=== PATIENT | female | born 1945 | race Caucasian/White ===

== ENCOUNTER → 2021-03-04 09:18 | Outpatient (CLI) | payer BC, SELFPAY ==
[2021-03-04 21:38] LABS: Add Manual Diff / Slide Review NO; Basophils Absolute Auto 0 /uL (0-100); Basophils Percent Auto 1.2 % (0-2); Eosinophils Absolute Auto 200 /uL (0-450); Eosinophils Percent Auto 5.3 % (2-4); Hematocrit 36.1 % (36-46); Hemoglobin 12.2 g/dL (12.0-16.0); Lymphocytes Absolute Auto 1200 /uL (1100-4500); Lymphocytes Percent Auto 37.5 % (25-40); Mean Corpuscular HGB Conc 33.7 % (30-36); Mean Corpuscular Hemoglobin 31.1 PG (26-34); Mean Corpuscular Volume 92.3 fL (80-100); Monocytes Absolute Auto 400 /uL (0-900); Monocytes Percent Auto 11.5 % (3-14); Neutrophils Absolute Auto 1400 /uL (1500-7000); Neutrophils Percent Auto 44.5 % (50-75); Platelet Count 187 X10^3/uL (150-400); Red Blood Cell Count 3.92 X10^6/uL (4.0-5.2); Red Cell Distribution Width 15.2 % (11.6-14.8); White Blood Cell Count 3.2 X10^3/uL (4.5-11.0)
[2021-03-04 22:06] LABS: Alanine Aminotransferase 57 IU/L (<35); Albumin 3.5 g/dL (3.5-5.0); Albumin Globulin Ratio 1.5 (1.0-2.8); Alkaline Phosphatase 45 U/L (38-126); Aspartate Aminotransferase 71 IU/L (14-36); BUN Creatinine Ratio 19.2 (6-22); Bilirubin Total 0.2 mg/dL (0.2-1.3); Blood Urea Nitrogen 15 mg/dL (7-17); Carbon Dioxide 24 mmol/L (22-32); Chloride 114 mmol/L (98-107); Estimated Glomerular Filt Rate > 60.0 mL/min (>60); Globulin 2.4 g/dL (1.7-4.1); Glucose 90 mg/dL (80-110); HEMOLYSIS < 15 (0-50); Potassium 4.5 mmol/L (3.4-5.1); Sodium 141 mmol/L (137-145); Total Protein 5.9 g/dL (6.3-8.2)
[2021-03-06 05:45] LABS: CA 15-3 36.1 U/mL (0.0-25.0)
== END ==
DX: C50.411 Malignant neoplasm of upper-outer quadrant of right female breast (principal)
CPT/HCPCS: 80053; 85025; 86300

== ENCOUNTER → 2021-04-01 09:11 | Outpatient (CLI) | payer BC, SELFPAY ==
[2021-04-01 20:43] LABS: Add Manual Diff / Slide Review NO; Basophils Absolute Auto 100 /uL (0-100); Basophils Percent Auto 2.5 % (0-2); Eosinophils Absolute Auto 100 /uL (0-450); Eosinophils Percent Auto 4.3 % (2-4); Hematocrit 36.4 % (36-46); Hemoglobin 12.2 g/dL (12.0-16.0); Lymphocytes Absolute Auto 900 /uL (1100-4500); Lymphocytes Percent Auto 33.7 % (25-40); Mean Corpuscular HGB Conc 33.6 % (30-36); Mean Corpuscular Hemoglobin 31.7 PG (26-34); Mean Corpuscular Volume 94.6 fL (80-100); Monocytes Absolute Auto 300 /uL (0-900); Monocytes Percent Auto 11.4 % (3-14); Neutrophils Absolute Auto 1300 /uL (1500-7000); Neutrophils Percent Auto 48.1 % (50-75); Platelet Count 170 X10^3/uL (150-400); Red Blood Cell Count 3.85 X10^6/uL (4.0-5.2); Red Cell Distribution Width 14.3 % (11.6-14.8); White Blood Cell Count 2.7 X10^3/uL (4.5-11.0)
[2021-04-01 20:50] LABS: Alanine Aminotransferase 65 IU/L (<35); Albumin 3.6 g/dL (3.5-5.0); Albumin Globulin Ratio 1.4 (1.0-2.8); Alkaline Phosphatase 45 U/L (38-126); Aspartate Aminotransferase 80 IU/L (14-36); BUN Creatinine Ratio 17.8 (6-22); Bilirubin Total 0.4 mg/dL (0.2-1.3); Blood Urea Nitrogen 16 mg/dL (7-17); Calcium 9.7 mg/dL (8.4-10.2); Carbon Dioxide 29 mmol/L (22-32); Chloride 109 mmol/L (98-107); Estimated Glomerular Filt Rate > 60.0 mL/min (>60); Globulin 2.5 g/dL (1.7-4.1); Glucose 67 mg/dL (80-110); HEMOLYSIS < 15 (0-50); Potassium 4.2 mmol/L (3.4-5.1); Sodium 140 mmol/L (137-145); Total Protein 6.1 g/dL (6.3-8.2)
[2021-04-03 06:27] LABS: CA 15-3 36.5 U/mL (0.0-25.0)
== END ==
DX: C50.411 Malignant neoplasm of upper-outer quadrant of right female breast (principal)
CPT/HCPCS: 80053; 85025; 86300

== ENCOUNTER → 2021-06-10 09:34 | Outpatient (CLI) | payer BC, SELFPAY ==
[2021-06-10 19:17] LABS: Add Manual Diff / Slide Review NO; Basophils Absolute Auto 0 /uL (0-100); Basophils Percent Auto 1.2 % (0-2); Eosinophils Absolute Auto 200 /uL (0-450); Eosinophils Percent Auto 5.8 % (2-4); Hemoglobin 12.4 g/dL (12.0-16.0); Lymphocytes Absolute Auto 1200 /uL (1100-4500); Lymphocytes Percent Auto 34.9 % (25-40); Mean Corpuscular HGB Conc 32.6 % (30-36); Mean Corpuscular Hemoglobin 30.8 PG (26-34); Mean Corpuscular Volume 94.3 fL (80-100); Monocytes Absolute Auto 400 /uL (0-900); Monocytes Percent Auto 11.5 % (3-14); Neutrophils Absolute Auto 1700 /uL (1500-7000); Neutrophils Percent Auto 46.6 % (50-75); Platelet Count 165 X10^3/uL (150-400); Red Blood Cell Count 4.03 X10^6/uL (4.0-5.2); Red Cell Distribution Width 14.5 % (11.6-14.8); White Blood Cell Count 3.6 X10^3/uL (4.5-11.0)
[2021-06-10 19:20] LABS: Alanine Aminotransferase 70 IU/L (<35); Albumin 3.7 g/dL (3.5-5.0); Albumin Globulin Ratio 1.4 (1.0-2.8); Alkaline Phosphatase 56 U/L (38-126); Aspartate Aminotransferase 91 IU/L (14-36); BUN Creatinine Ratio 19.6 (6-22); Bilirubin Total 0.6 mg/dL (0.2-1.3); Blood Urea Nitrogen 18 mg/dL (7-17); Calcium 10.2 mg/dL (8.4-10.2); Carbon Dioxide 28 mmol/L (22-32); Chloride 108 mmol/L (98-107); Estimated Glomerular Filt Rate 59.4 mL/min (>60); Globulin 2.7 g/dL (1.7-4.1); Glucose 83 mg/dL (80-110); HEMOLYSIS < 15 (0-50); Potassium 4.3 mmol/L (3.4-5.1); Sodium 139 mmol/L (137-145); Total Protein 6.4 g/dL (6.3-8.2)
[2021-06-12 00:07] LABS: CA 15-3 32.2 U/mL (0.0-25.0)
== END ==
PROVIDERS: PCP Internal Medicine Hematology & Oncology; Visit Provider Internal Medicine Hematology & Oncology
DX: C50.411 Malignant neoplasm of upper-outer quadrant of right female breast (principal)
CPT/HCPCS: 80053; 85025; 86300

== ENCOUNTER → 2021-07-08 10:08 | Outpatient (CLI) | payer BC, SELFPAY ==
[2021-07-08 19:33] LABS: Add Manual Diff / Slide Review NO; Basophils Absolute Auto 0 /uL (0-100); Basophils Percent Auto 1.5 % (0-2); Eosinophils Absolute Auto 200 /uL (0-450); Eosinophils Percent Auto 5.6 % (2-4); Hematocrit 37.8 % (36-46); Hemoglobin 12.6 g/dL (12.0-16.0); Lymphocytes Absolute Auto 1000 /uL (1100-4500); Lymphocytes Percent Auto 34.7 % (25-40); Mean Corpuscular HGB Conc 33.3 % (30-36); Mean Corpuscular Hemoglobin 31.3 PG (26-34); Mean Corpuscular Volume 94.1 fL (80-100); Monocytes Absolute Auto 400 /uL (0-900); Monocytes Percent Auto 11.8 % (3-14); Neutrophils Absolute Auto 1400 /uL (1500-7000); Neutrophils Percent Auto 46.4 % (50-75); Platelet Count 169 X10^3/uL (150-400); Red Blood Cell Count 4.02 X10^6/uL (4.0-5.2); Red Cell Distribution Width 14.2 % (11.6-14.8)
[2021-07-08 19:40] LABS: Alanine Aminotransferase 79 IU/L (<35); Albumin 3.8 g/dL (3.5-5.0); Albumin Globulin Ratio 1.5 (1.0-2.8); Alkaline Phosphatase 44 U/L (38-126); Aspartate Aminotransferase 106 IU/L (14-36); BUN Creatinine Ratio 17.6 (6-22); Bilirubin Total 0.5 mg/dL (0.2-1.3); Blood Urea Nitrogen 16 mg/dL (7-17); Calcium 9.8 mg/dL (8.4-10.2); Carbon Dioxide 32 mmol/L (22-32); Chloride 108 mmol/L (98-107); Estimated Glomerular Filt Rate > 60.0 mL/min (>60); Globulin 2.6 g/dL (1.7-4.1); Glucose 75 mg/dL (80-110); HEMOLYSIS < 15 (0-50); Potassium 4.4 mmol/L (3.4-5.1); Sodium 141 mmol/L (137-145); Total Protein 6.4 g/dL (6.3-8.2)
[2021-07-10 08:53] LABS: CA 15-3 27.9 U/mL (0.0-25.0)
== END ==
PROVIDERS: PCP Physician Assistant; Visit Provider Internal Medicine Hematology & Oncology
DX: C50.411 Malignant neoplasm of upper-outer quadrant of right female breast (principal)
CPT/HCPCS: 80053; 85025; 86300

== ENCOUNTER → 2021-09-23 12:16 | Outpatient (CLI) | payer BC, SELFPAY ==
[2021-09-23 18:57] LABS: Add Manual Diff / Slide Review NO; Basophils Absolute Auto 100 /uL (0-100); Basophils Percent Auto 1.5 % (0-2); Eosinophils Absolute Auto 100 /uL (0-450); Eosinophils Percent Auto 2.1 % (2-4); Hematocrit 36.2 % (36-46); Hemoglobin 11.9 g/dL (12.0-16.0); Lymphocytes Absolute Auto 900 /uL (1100-4500); Lymphocytes Percent Auto 22.7 % (25-40); Mean Corpuscular HGB Conc 32.8 % (30-36); Mean Corpuscular Hemoglobin 30.4 PG (26-34); Mean Corpuscular Volume 92.6 fL (80-100); Monocytes Absolute Auto 300 /uL (0-900); Monocytes Percent Auto 6.6 % (3-14); Neutrophils Absolute Auto 2500 /uL (1500-7000); Neutrophils Percent Auto 67.1 % (50-75); Platelet Count 207 X10^3/uL (150-400); Red Blood Cell Count 3.91 X10^6/uL (4.0-5.2); Red Cell Distribution Width 13.7 % (11.6-14.8); White Blood Cell Count 3.8 X10^3/uL (4.5-11.0)
[2021-09-23 19:07] LABS: Alanine Aminotransferase 105 IU/L (<35); Albumin 3.6 g/dL (3.5-5.0); Albumin Globulin Ratio 1.3 (1.0-2.8); Alkaline Phosphatase 65 U/L (38-126); Aspartate Aminotransferase 105 IU/L (14-36); BUN Creatinine Ratio 14.8 (6-22); Bilirubin Total 0.5 mg/dL (0.2-1.3); Blood Urea Nitrogen 13 mg/dL (7-17); Calcium 9.4 mg/dL (8.4-10.2); Carbon Dioxide 28 mmol/L (22-32); Chloride 106 mmol/L (98-107); Estimated Glomerular Filt Rate > 60.0 mL/min (>60); Globulin 2.7 g/dL (1.7-4.1); Glucose 102 mg/dL (80-110); HEMOLYSIS < 15 (0-50); Potassium 3.7 mmol/L (3.4-5.1); Sodium 139 mmol/L (137-145); Total Protein 6.3 g/dL (6.3-8.2)
[2021-09-25 06:12] LABS: CA 15-3 26.2 U/mL (0.0-25.0)
== END ==
PROVIDERS: PCP Family Medicine; Visit Provider Internal Medicine Hematology & Oncology
DX: C50.411 Malignant neoplasm of upper-outer quadrant of right female breast (principal)
CPT/HCPCS: 80053; 85025; 86300

== ENCOUNTER → 2021-10-04 08:11 | Outpatient (CLI) | payer BC, SELFPAY ==
[2021-10-04 19:34] LABS: Appearance Urine UA CLOUDY; Bilirubin Urine UA NEGATIVE (NEGATIVE); Color Urine UA YELLOW; Glucose Urine UA NEGATIVE (Negative); Ketones Urine UA NEGATIVE (NEGATIVE); Leukocyte Esterase Urine UA 2+ (NEGATIVE); Nitrite Urine UA POSITIVE (Negative); Occult Blood Urine UA 1+ (Negative); Protein Urine UA 1+ (Negative); Urobilinogen Urine UA 0.2 E.U./dL (0.2)
[2021-10-04 19:42] LABS: pH Urine UA 7.5 (4.5-8.0)
[2021-10-04 20:39] LABS: RBC Urine 5-10/HPF (0-5/HPF); Squamous Epithelial Cell Urine None Seen (0-5/HPF)
[2021-10-04 20:40] LABS: Bacteria Urine Many (>30); Culture Indicated Urine Specimen Cultured; Renal Epithelial Cells Urine 0-1/HPF (0-1/HPF); Transitional Epi Cells Urine 0-1/HPF (0-5/HPF); WBC Urine 30-100/HPF (0-5/HPF)
== END ==
PROVIDERS: PCP Family Medicine
DX: N39.41 Urge incontinence (principal)
CPT/HCPCS: 81001; 87077; 87086; 87186

== ENCOUNTER → 2021-10-11 11:50 | Outpatient (CLI) | payer BC, SELFPAY ==
[2021-10-11 19:03] LABS: Add Manual Diff / Slide Review NO; Basophils Absolute Auto 0 /uL (0-100); Basophils Percent Auto 0.3 % (0-2); Eosinophils Absolute Auto 100 /uL (0-450); Eosinophils Percent Auto 3.3 % (2-4); Hematocrit 35.4 % (36-46); Lymphocytes Absolute Auto 700 /uL (1100-4500); Lymphocytes Percent Auto 26.5 % (25-40); Mean Corpuscular HGB Conc 33.7 % (30-36); Mean Corpuscular Hemoglobin 31.6 PG (26-34); Mean Corpuscular Volume 93.5 fL (80-100); Monocytes Absolute Auto 400 /uL (0-900); Monocytes Percent Auto 15.7 % (3-14); Neutrophils Absolute Auto 1500 /uL (1500-7000); Neutrophils Percent Auto 54.2 % (50-75); Platelet Count 153 X10^3/uL (150-400); Red Blood Cell Count 3.79 X10^6/uL (4.0-5.2); Red Cell Distribution Width 14.3 % (11.6-14.8); White Blood Cell Count 2.7 X10^3/uL (4.5-11.0)
[2021-10-11 19:04] LABS: Alanine Aminotransferase 186 IU/L (<35); Albumin 3.6 g/dL (3.5-5.0); Albumin Globulin Ratio 1.2 (1.0-2.8); Alkaline Phosphatase 94 U/L (38-126); Aspartate Aminotransferase 157 IU/L (14-36); BUN Creatinine Ratio 16.7 (6-22); Bilirubin Total 0.4 mg/dL (0.2-1.3); Blood Urea Nitrogen 14 mg/dL (7-17); Calcium 9.5 mg/dL (8.4-10.2); Carbon Dioxide 30 mmol/L (22-32); Chloride 108 mmol/L (98-107); Estimated Glomerular Filt Rate > 60.0 mL/min (>60); Globulin 2.9 g/dL (1.7-4.1); Glucose 90 mg/dL (80-110); HEMOLYSIS < 15 (0-50); Potassium 4.6 mmol/L (3.4-5.1); Sodium 137 mmol/L (137-145); Total Protein 6.5 g/dL (6.3-8.2)
[2021-10-12 05:21] LABS: CA 15-3 27.6 U/mL (0.0-25.0)
== END ==
PROVIDERS: PCP Family Medicine; Visit Provider Internal Medicine Hematology & Oncology
DX: C50.411 Malignant neoplasm of upper-outer quadrant of right female breast (principal)
CPT/HCPCS: 80053; 85025; 86300

== ENCOUNTER → 2021-12-11 13:04 | Outpatient (CLI) | payer BC, SELFPAY ==
[2021-12-11 18:53] LABS: Alanine Aminotransferase 163 IU/L (<35); Albumin 3.7 g/dL (3.5-5.0); Albumin Globulin Ratio 1.2 (1.0-2.8); Alkaline Phosphatase 60 U/L (38-126); Aspartate Aminotransferase 210 IU/L (14-36); BUN Creatinine Ratio 18.9 (6-22); Bilirubin Total 0.7 mg/dL (0.2-1.3); Blood Urea Nitrogen 18 mg/dL (7-17); Calcium 10.2 mg/dL (8.4-10.2); Carbon Dioxide 33 mmol/L (22-32); Chloride 107 mmol/L (98-107); Estimated Glomerular Filt Rate 57.2 mL/min (>60); Glucose 86 mg/dL (80-110); HEMOLYSIS < 15 (0-50); Potassium 4.2 mmol/L (3.4-5.1); Sodium 138 mmol/L (137-145); Total Protein 6.7 g/dL (6.3-8.2)
[2021-12-11 19:04] LABS: Add Manual Diff / Slide Review NO; Basophils Absolute Auto 0 /uL (0-100); Basophils Percent Auto 0.5 % (0-2); Eosinophils Absolute Auto 100 /uL (0-450); Eosinophils Percent Auto 2.4 % (2-4); Hematocrit 37.5 % (36-46); Hemoglobin 12.6 g/dL (12.0-16.0); Lymphocytes Absolute Auto 1000 /uL (1100-4500); Lymphocytes Percent Auto 29.1 % (25-40); Mean Corpuscular HGB Conc 33.5 % (30-36); Mean Corpuscular Hemoglobin 31.7 PG (26-34); Mean Corpuscular Volume 94.9 fL (80-100); Monocytes Absolute Auto 500 /uL (0-900); Monocytes Percent Auto 13.4 % (3-14); Neutrophils Absolute Auto 1900 /uL (1500-7000); Neutrophils Percent Auto 54.6 % (50-75); Platelet Count 153 X10^3/uL (150-400); Red Blood Cell Count 3.96 X10^6/uL (4.0-5.2); Red Cell Distribution Width 14.4 % (11.6-14.8); White Blood Cell Count 3.5 X10^3/uL (4.5-11.0)
[2021-12-12 07:09] LABS: CA 15-3 26.7 U/mL (0.0-25.0)
== END ==
PROVIDERS: PCP Family Medicine; Visit Provider Internal Medicine Hematology & Oncology
DX: C50.411 Malignant neoplasm of upper-outer quadrant of right female breast (principal)
CPT/HCPCS: 80053; 85025; 86300

== ENCOUNTER → 2022-01-20 13:30 | Outpatient (CLI) | payer BC, SELFPAY ==
[2022-01-20 19:56] LABS: Add Manual Diff / Slide Review NO; Basophils Absolute Auto 0 /uL (0-100); Basophils Percent Auto 1.5 % (0-2); Eosinophils Absolute Auto 100 /uL (0-450); Eosinophils Percent Auto 3.7 % (2-4); Hematocrit 37.6 % (36-46); Hemoglobin 12.6 g/dL (12.0-16.0); Lymphocytes Absolute Auto 900 /uL (1100-4500); Lymphocytes Percent Auto 33.6 % (25-40); Mean Corpuscular HGB Conc 33.4 % (30-36); Mean Corpuscular Hemoglobin 32.1 PG (26-34); Monocytes Absolute Auto 300 /uL (0-900); Monocytes Percent Auto 9.8 % (3-14); Neutrophils Absolute Auto 1400 /uL (1500-7000); Neutrophils Percent Auto 51.4 % (50-75); Platelet Count 137 X10^3/uL (150-400); Red Blood Cell Count 3.91 X10^6/uL (4.0-5.2); Red Cell Distribution Width 14.4 % (11.6-14.8); White Blood Cell Count 2.8 X10^3/uL (4.5-11.0)
[2022-01-20 20:02] LABS: Alanine Aminotransferase 112 IU/L (<35); Albumin 3.5 g/dL (3.5-5.0); Albumin Globulin Ratio 1.3 (1.0-2.8); Alkaline Phosphatase 93 U/L (38-126); Aspartate Aminotransferase 138 IU/L (14-36); BUN Creatinine Ratio 16.5 (6-22); Bilirubin Total 0.6 mg/dL (0.2-1.3); Blood Urea Nitrogen 16 mg/dL (7-17); Calcium 9.8 mg/dL (8.4-10.2); Carbon Dioxide 30 mmol/L (22-32); Chloride 106 mmol/L (98-107); Estimated Glomerular Filt Rate 55.8 mL/min (>60); Globulin 2.7 g/dL (1.7-4.1); Glucose 144 mg/dL (80-110); HEMOLYSIS < 15 (0-50); Sodium 138 mmol/L (137-145); Total Protein 6.2 g/dL (6.3-8.2)
[2022-01-22 06:22] LABS: CA 15-3 27.9 U/mL (0.0-25.0)
== END ==
PROVIDERS: PCP Family Medicine; Visit Provider Internal Medicine Hematology & Oncology
DX: C50.411 Malignant neoplasm of upper-outer quadrant of right female breast (principal)
CPT/HCPCS: 80053; 85025; 86300

== ENCOUNTER → 2022-01-23 09:53 | Outpatient (CLI) | payer BC, SELFPAY ==
[2022-01-23 19:12] LABS: Appearance Urine UA CLEAR; Bilirubin Urine UA NEGATIVE (NEGATIVE); Color Urine UA YELLOW; Glucose Urine UA NEGATIVE (Negative); Ketones Urine UA NEGATIVE (NEGATIVE); Leukocyte Esterase Urine UA NEGATIVE (NEGATIVE); Nitrite Urine UA NEGATIVE (Negative); Occult Blood Urine UA NEGATIVE (Negative); Protein Urine UA TRACE (Negative); Urobilinogen Urine UA 0.2 E.U./dL (0.2)
[2022-01-23 19:15] LABS: Add Manual Diff / Slide Review NO; Basophils Absolute Auto 0 /uL (0-100); Basophils Percent Auto 0.4 % (0-2); Eosinophils Absolute Auto 200 /uL (0-450); Eosinophils Percent Auto 5.5 % (2-4); Hematocrit 38.4 % (36-46); Lymphocytes Absolute Auto 900 /uL (1100-4500); Lymphocytes Percent Auto 29.7 % (25-40); Mean Corpuscular HGB Conc 33.9 % (30-36); Mean Corpuscular Hemoglobin 32.1 PG (26-34); Mean Corpuscular Volume 94.8 fL (80-100); Monocytes Absolute Auto 300 /uL (0-900); Monocytes Percent Auto 12.2 % (3-14); Neutrophils Absolute Auto 1500 /uL (1500-7000); Neutrophils Percent Auto 52.2 % (50-75); Platelet Count 145 X10^3/uL (150-400); Red Blood Cell Count 4.05 X10^6/uL (4.0-5.2); Red Cell Distribution Width 14.4 % (11.6-14.8); White Blood Cell Count 2.9 X10^3/uL (4.5-11.0)
[2022-01-23 19:21] LABS: Amorphous Sediment Urine 2+; RBC Urine None Seen (0-5/HPF); WBC Urine 5-10/HPF (0-5/HPF)
[2022-01-23 19:22] LABS: Bacteria Urine None Seen; Culture Indicated Urine Specimen Cultured
[2022-01-23 19:25] LABS: Alanine Aminotransferase 109 IU/L (<35); Albumin 3.6 g/dL (3.5-5.0); Albumin Globulin Ratio 1.2 (1.0-2.8); Alkaline Phosphatase 79 U/L (38-126); Aspartate Aminotransferase 121 IU/L (14-36); BUN Creatinine Ratio 14.9 (6-22); Bilirubin Total 0.6 mg/dL (0.2-1.3); Blood Urea Nitrogen 14 mg/dL (7-17); Calcium 9.3 mg/dL (8.4-10.2); Carbon Dioxide 31 mmol/L (22-32); Chloride 106 mmol/L (98-107); Estimated Glomerular Filt Rate 57.9 mL/min (>60); Globulin 2.9 g/dL (1.7-4.1); Glucose 87 mg/dL (80-110); HEMOLYSIS < 15 (0-50); Potassium 4.1 mmol/L (3.4-5.1); Sodium 139 mmol/L (137-145); Total Protein 6.5 g/dL (6.3-8.2)
[2022-01-23 19:29] LABS: High Sensitivity CRP - Cardiac 0.7 mg/L (1.0-3.0)
[2022-01-23 19:42] LABS: Free T4, Direct Thyroxine 1.05 ng/dL (0.78-2.19); Vitamin D 25 Hydroxy (D3) 44.3 ng/mL (30.0-100.0)
[2022-01-23 19:56] LABS: Thyroid Stimulating Hormone 1.82 uIU/mL (0.47-4.68)
[2022-01-26 15:35] LABS: Cholesterol, Total 161 mg/dL (100-199); HDL-Cholesterol 65 mg/dL (>39); HDL-Particle (Total) 25.8 umol/L (>=30.5); LDL Particle 1235 nmol/L (<1000); LDL-Cholsterol 75 mg/dL (0-99); LP-IR Score <25 (<=45); Small LDL- Particle <90 nmol/L (<=527); Triglycerides 121 mg/dL (0-149)
== END ==
PROVIDERS: PCP Family Medicine
DX: D50.9 Iron deficiency anemia, unspecified (principal); E78.5 Hyperlipidemia, unspecified; N18.30 Chronic kidney disease, stage 3 unspecified; R32 Unspecified urinary incontinence
CPT/HCPCS: 80053; 80061; 81001; 82306; 83704; 84439; 84443; 85025; 86140; 87086

== ENCOUNTER → 2022-04-30 11:31 | Outpatient (CLI) | payer BC, SELFPAY ==
[2022-04-30 20:36] LABS: Hematocrit 37.7 % (36-46); Hemoglobin 12.8 g/dL (12.0-16.0); Mean Corpuscular HGB Conc 33.9 % (30-36); Mean Corpuscular Hemoglobin 33.4 PG (26-34); Mean Corpuscular Volume 98.3 fL (80-100); Platelet Count 133 X10^3/uL (150-400); Red Blood Cell Count 3.83 X10^6/uL (4.0-5.2); Red Cell Distribution Width 13.9 % (11.6-14.8)
[2022-04-30 20:45] LABS: Add Manual Diff / Slide Review YES
[2022-04-30 20:46] LABS: Alanine Aminotransferase 37 IU/L (<35); Albumin 3.6 g/dL (3.5-5.0); Albumin Globulin Ratio 1.3 (1.0-2.8); Alkaline Phosphatase 68 U/L (38-126); Aspartate Aminotransferase 69 IU/L (14-36); BUN Creatinine Ratio 15.4 (6-22); Bilirubin Total 0.5 mg/dL (0.2-1.3); Blood Urea Nitrogen 14 mg/dL (7-17); Calcium 9.4 mg/dL (8.4-10.2); Carbon Dioxide 27 mmol/L (22-32); Chloride 108 mmol/L (98-107); Estimated Glomerular Filt Rate > 60 mL/min (>60); Globulin 2.7 g/dL (1.7-4.1); Glucose 82 mg/dL (80-110); HEMOLYSIS < 15 (0-50); Sodium 139 mmol/L (137-145); Total Protein 6.3 g/dL (6.3-8.2)
[2022-04-30 21:17] LABS: White Blood Cell Count 1.7 X10^3/uL (4.5-11.0)
[2022-04-30 21:29] LABS: Neutrophils Absolute Manual 952 /uL (3000-5900); RBC Morphology Normal Morphology; Total Cells Counted 100
[2022-05-02 08:52] LABS: CA 15-3 27.7 U/mL (0.0-25.0)
== END ==
PROVIDERS: PCP Family Medicine; Visit Provider Internal Medicine Hematology & Oncology
DX: C50.111 Malignant neoplasm of central portion of right female breast (principal); Z17.0 Estrogen receptor positive status [ER+]
CPT/HCPCS: 80053; 85007; 85025; 86300

== ENCOUNTER → 2022-06-04 13:37 | Outpatient (CLI) | payer BC, SELFPAY ==
[2022-06-04 19:50] LABS: Add Manual Diff / Slide Review NO; Basophils Absolute Auto 0 /uL (0-100); Eosinophils Absolute Auto 0 /uL (0-450); Eosinophils Percent Auto 1.2 % (2-4); Hematocrit 37.7 % (36-46); Hemoglobin 12.8 g/dL (12.0-16.0); Lymphocytes Absolute Auto 1400 /uL (1100-4500); Lymphocytes Percent Auto 47.7 % (25-40); Mean Corpuscular HGB Conc 33.9 % (30-36); Mean Corpuscular Hemoglobin 32.6 PG (26-34); Monocytes Absolute Auto 300 /uL (0-900); Monocytes Percent Auto 10.1 % (3-14); Neutrophils Absolute Auto 1100 /uL (1500-7000); Platelet Count 169 X10^3/uL (150-400); Red Blood Cell Count 3.92 X10^6/uL (4.0-5.2); Red Cell Distribution Width 14.6 % (11.6-14.8); White Blood Cell Count 2.8 X10^3/uL (4.5-11.0)
[2022-06-04 19:56] LABS: Alanine Aminotransferase 26 IU/L (<35); Albumin 3.6 g/dL (3.5-5.0); Albumin Globulin Ratio 1.1 (1.0-2.8); Alkaline Phosphatase 80 U/L (38-126); Aspartate Aminotransferase 52 IU/L (14-36); BUN Creatinine Ratio 14.4 (6-22); Bilirubin Total 0.6 mg/dL (0.2-1.3); Blood Urea Nitrogen 15 mg/dL (7-17); Calcium 9.3 mg/dL (8.4-10.2); Carbon Dioxide 28 mmol/L (22-32); Estimated Glomerular Filt Rate 55 mL/min (>60); Globulin 3.2 g/dL (1.7-4.1); Glucose 97 mg/dL (80-110); HEMOLYSIS < 15 (0-50); Sodium 140 mmol/L (137-145); Total Protein 6.8 g/dL (6.3-8.2)
[2022-06-04 20:08] LABS: Chloride 109 mmol/L (98-107)
[2022-06-05 23:10] LABS: CA 15-3 30.9 U/mL (0.0-25.0)
== END ==
PROVIDERS: PCP Family Medicine; Visit Provider Internal Medicine Hematology & Oncology
DX: C50.111 Malignant neoplasm of central portion of right female breast (principal); Z17.0 Estrogen receptor positive status [ER+]
CPT/HCPCS: 80053; 85025; 86300

== ENCOUNTER → 2022-07-02 11:09 | Outpatient (CLI) | payer BC, SELFPAY ==
[2022-07-02 19:42] LABS: Add Manual Diff / Slide Review NO; Basophils Absolute Auto 0 /uL (0-100); Basophils Percent Auto 1.3 % (0-2); Eosinophils Absolute Auto 0 /uL (0-450); Eosinophils Percent Auto 1.6 % (2-4); Hematocrit 35.6 % (36-46); Hemoglobin 12.2 g/dL (12.0-16.0); Lymphocytes Absolute Auto 1300 /uL (1100-4500); Lymphocytes Percent Auto 48.1 % (25-40); Mean Corpuscular HGB Conc 34.3 % (30-36); Mean Corpuscular Volume 96.3 fL (80-100); Monocytes Absolute Auto 300 /uL (0-900); Neutrophils Absolute Auto 1000 /uL (1500-7000); Platelet Count 145 X10^3/uL (150-400); White Blood Cell Count 2.8 X10^3/uL (4.5-11.0)
[2022-07-02 19:55] LABS: Alanine Aminotransferase 22 IU/L (<35); Albumin 3.4 g/dL (3.5-5.0); Albumin Globulin Ratio 1.1 (1.0-2.8); Alkaline Phosphatase 75 U/L (38-126); Aspartate Aminotransferase 45 IU/L (14-36); BUN Creatinine Ratio 15.7 (6-22); Bilirubin Total 0.7 mg/dL (0.2-1.3); Blood Urea Nitrogen 14 mg/dL (7-17); Calcium 9.4 mg/dL (8.4-10.2); Carbon Dioxide 27 mmol/L (22-32); Chloride 107 mmol/L (98-107); Estimated Glomerular Filt Rate > 60 mL/min (>60); Glucose 77 mg/dL (80-110); HEMOLYSIS < 15 (0-50); Potassium 4.2 mmol/L (3.4-5.1); Sodium 138 mmol/L (137-145); Total Protein 6.4 g/dL (6.3-8.2)
[2022-07-04 07:27] LABS: CA 15-3 29.6 U/mL (0.0-25.0)
== END ==
PROVIDERS: PCP Family Medicine; Visit Provider Internal Medicine Hematology & Oncology
DX: C50.111 Malignant neoplasm of central portion of right female breast (principal); Z17.0 Estrogen receptor positive status [ER+]
CPT/HCPCS: 80053; 85025; 86300

== ENCOUNTER → 2022-08-05 14:02 | Outpatient (CLI) | payer BC, SELFPAY ==
[2022-08-05 19:14] LABS: Add Manual Diff / Slide Review NO; Basophils Absolute Auto 0 /uL (0-100); Basophils Percent Auto 0.8 % (0-2); Eosinophils Absolute Auto 100 /uL (0-450); Eosinophils Percent Auto 1.4 % (2-4); Hemoglobin 12.4 g/dL (12.0-16.0); Lymphocytes Absolute Auto 1200 /uL (1100-4500); Lymphocytes Percent Auto 35.9 % (25-40); Mean Corpuscular HGB Conc 33.6 % (30-36); Mean Corpuscular Hemoglobin 33.3 PG (26-34); Mean Corpuscular Volume 99.1 fL (80-100); Monocytes Absolute Auto 300 /uL (0-900); Neutrophils Absolute Auto 1800 /uL (1500-7000); Neutrophils Percent Auto 51.9 % (50-75); Platelet Count 168 X10^3/uL (150-400); Red Blood Cell Count 3.74 X10^6/uL (4.0-5.2); White Blood Cell Count 3.5 X10^3/uL (4.5-11.0)
[2022-08-05 19:42] LABS: Alanine Aminotransferase 141 IU/L (<35); Albumin 3.5 g/dL (3.5-5.0); Albumin Globulin Ratio 1.1 (1.0-2.8); Alkaline Phosphatase 234 U/L (38-126); Aspartate Aminotransferase 149 IU/L (14-36); BUN Creatinine Ratio 15.4 (6-22); Bilirubin Total 0.5 mg/dL (0.2-1.3); Blood Urea Nitrogen 14 mg/dL (7-17); Calcium 9.9 mg/dL (8.4-10.2); Carbon Dioxide 27 mmol/L (22-32); Chloride 105 mmol/L (98-107); Estimated Glomerular Filt Rate > 60 mL/min (>60); Globulin 3.2 g/dL (1.7-4.1); Glucose 88 mg/dL (80-110); HEMOLYSIS < 15 (0-50); Potassium 4.1 mmol/L (3.4-5.1); Sodium 138 mmol/L (137-145); Total Protein 6.7 g/dL (6.3-8.2)
== END ==
PROVIDERS: PCP Physician Assistant; Visit Provider Internal Medicine Hematology & Oncology
DX: C50.111 Malignant neoplasm of central portion of right female breast (principal); Z17.0 Estrogen receptor positive status [ER+]; R30.0 Dysuria
CPT/HCPCS: 80053; 85025; 86300; 87077; 87086; 87186

== ENCOUNTER → 2022-09-04 12:00 | Outpatient (CLI) | payer BC, SELFPAY ==
[2022-09-04 19:56] LABS: Add Manual Diff / Slide Review NO; Basophils Absolute Auto 0 /uL (0-100); Basophils Percent Auto 0.9 % (0-2); Eosinophils Absolute Auto 100 /uL (0-450); Hematocrit 36.5 % (36-46); Hemoglobin 12.5 g/dL (12.0-16.0); Lymphocytes Absolute Auto 1500 /uL (1100-4500); Lymphocytes Percent Auto 43.7 % (25-40); Mean Corpuscular HGB Conc 34.3 % (30-36); Mean Corpuscular Hemoglobin 33.9 PG (26-34); Mean Corpuscular Volume 99.1 fL (80-100); Monocytes Absolute Auto 400 /uL (0-900); Monocytes Percent Auto 11.3 % (3-14); Neutrophils Absolute Auto 1400 /uL (1500-7000); Neutrophils Percent Auto 41.1 % (50-75); Platelet Count 157 X10^3/uL (150-400); Red Blood Cell Count 3.68 X10^6/uL (4.0-5.2); Red Cell Distribution Width 14.4 % (11.6-14.8); White Blood Cell Count 3.4 X10^3/uL (4.5-11.0)
[2022-09-04 20:04] LABS: Alanine Aminotransferase 28 IU/L (<35); Albumin 3.6 g/dL (3.5-5.0); Albumin Globulin Ratio 1.2 (1.0-2.8); Alkaline Phosphatase 93 U/L (38-126); Aspartate Aminotransferase 43 IU/L (14-36); BUN Creatinine Ratio 14.9 (6-22); Bilirubin Total 0.6 mg/dL (0.2-1.3); Blood Urea Nitrogen 14 mg/dL (7-17); Calcium 9.6 mg/dL (8.4-10.2); Carbon Dioxide 27 mmol/L (22-32); Chloride 107 mmol/L (98-107); Estimated Glomerular Filt Rate > 60 mL/min (>60); Glucose 78 mg/dL (80-110); HEMOLYSIS < 15 (0-50); Potassium 4.2 mmol/L (3.4-5.1); Sodium 138 mmol/L (137-145); Total Protein 6.6 g/dL (6.3-8.2)
[2022-09-06 07:31] LABS: CA 15-3 30.4 U/mL (0.0-25.0)
== END ==
PROVIDERS: PCP Physician Assistant; Visit Provider Internal Medicine Hematology & Oncology
DX: C50.111 Malignant neoplasm of central portion of right female breast (principal); Z17.0 Estrogen receptor positive status [ER+]
CPT/HCPCS: 80053; 85025; 86300

== ENCOUNTER → 2022-09-29 11:35 | Outpatient (CLI) | payer BC, SELFPAY ==
[2022-09-29 20:32] LABS: Add Manual Diff / Slide Review NO; Basophils Absolute Auto 0 /uL (0-100); Basophils Percent Auto 1.2 % (0-2); Eosinophils Absolute Auto 100 /uL (0-450); Eosinophils Percent Auto 2.3 % (2-4); Hematocrit 37.8 % (36-46); Hemoglobin 12.8 g/dL (12.0-16.0); Lymphocytes Absolute Auto 1100 /uL (1100-4500); Lymphocytes Percent Auto 36.3 % (25-40); Mean Corpuscular Hemoglobin 33.5 PG (26-34); Mean Corpuscular Volume 98.6 fL (80-100); Monocytes Absolute Auto 300 /uL (0-900); Monocytes Percent Auto 10.5 % (3-14); Neutrophils Absolute Auto 1500 /uL (1500-7000); Neutrophils Percent Auto 49.7 % (50-75); Platelet Count 161 X10^3/uL (150-400); Red Blood Cell Count 3.84 X10^6/uL (4.0-5.2)
[2022-09-29 20:34] LABS: Alanine Aminotransferase 25 IU/L (<35); Albumin 3.6 g/dL (3.5-5.0); Albumin Globulin Ratio 1.3 (1.0-2.8); Alkaline Phosphatase 82 U/L (38-126); Aspartate Aminotransferase 39 IU/L (14-36); BUN Creatinine Ratio 11.9 (6-22); Bilirubin Total 0.6 mg/dL (0.2-1.3); Blood Urea Nitrogen 12 mg/dL (7-17); Calcium 9.4 mg/dL (8.4-10.2); Carbon Dioxide 27 mmol/L (22-32); Chloride 109 mmol/L (98-107); Estimated Glomerular Filt Rate 57 mL/min (>60); Globulin 2.8 g/dL (1.7-4.1); Glucose 89 mg/dL (80-110); HEMOLYSIS < 15 (0-50); Potassium 3.9 mmol/L (3.4-5.1); Sodium 139 mmol/L (137-145); Total Protein 6.4 g/dL (6.3-8.2)
[2022-10-01 07:36] LABS: CA 15-3 30.6 U/mL (0.0-25.0)
== END ==
PROVIDERS: PCP Physician Assistant; Visit Provider Internal Medicine Hematology & Oncology
DX: C50.111 Malignant neoplasm of central portion of right female breast (principal); Z17.0 Estrogen receptor positive status [ER+]
CPT/HCPCS: 80053; 85025; 86300

== ENCOUNTER → 2022-10-21 13:37 | Outpatient (CLI) | payer BC, SELFPAY ==
[2022-10-21 19:44] LABS: Alanine Aminotransferase 25 IU/L (<35); Albumin 3.7 g/dL (3.5-5.0); Albumin Globulin Ratio 1.2 (1.0-2.8); Alkaline Phosphatase 74 U/L (38-126); Aspartate Aminotransferase 44 IU/L (14-36); BUN Creatinine Ratio 13.9 (6-22); Bilirubin Total 0.5 mg/dL (0.2-1.3); Blood Urea Nitrogen 14 mg/dL (7-17); Calcium 9.8 mg/dL (8.4-10.2); Carbon Dioxide 31 mmol/L (22-32); Chloride 105 mmol/L (98-107); Estimated Glomerular Filt Rate 57 mL/min (>60); Globulin 3.2 g/dL (1.7-4.1); Glucose 82 mg/dL (80-110); HEMOLYSIS < 15 (0-50); Potassium 3.6 mmol/L (3.4-5.1); Sodium 139 mmol/L (137-145); Total Protein 6.9 g/dL (6.3-8.2)
[2022-10-21 19:51] LABS: Add Manual Diff / Slide Review NO; Basophils Absolute Auto 0 /uL (0-100); Basophils Percent Auto 0.4 % (0-2); Eosinophils Absolute Auto 100 /uL (0-450); Hematocrit 38.2 % (36-46); Hemoglobin 12.9 g/dL (12.0-16.0); Lymphocytes Absolute Auto 1300 /uL (1100-4500); Lymphocytes Percent Auto 47.1 % (25-40); Mean Corpuscular HGB Conc 33.9 % (30-36); Mean Corpuscular Hemoglobin 33.7 PG (26-34); Mean Corpuscular Volume 99.4 fL (80-100); Monocytes Absolute Auto 200 /uL (0-900); Monocytes Percent Auto 7.8 % (3-14); Neutrophils Absolute Auto 1100 /uL (1500-7000); Neutrophils Percent Auto 42.7 % (50-75); Platelet Count 164 X10^3/uL (150-400); Red Blood Cell Count 3.84 X10^6/uL (4.0-5.2); Red Cell Distribution Width 14.1 % (11.6-14.8); White Blood Cell Count 2.7 X10^3/uL (4.5-11.0)
[2022-10-22 22:50] LABS: CA 15-3 35.4 U/mL (0.0-25.0)
== END ==
PROVIDERS: PCP Physician Assistant; Visit Provider Internal Medicine Hematology & Oncology
DX: C50.111 Malignant neoplasm of central portion of right female breast (principal); C50.919 Malignant neoplasm of unspecified site of unspecified female breast; Z17.0 Estrogen receptor positive status [ER+]; N39.0 Urinary tract infection, site not specified
CPT/HCPCS: 80053; 85025; 86300; 87077; 87086; 87186

== ENCOUNTER → 2022-12-01 15:07 | Outpatient (CLI) | payer BC, SELFPAY ==
[2022-12-01 19:33] LABS: Alanine Aminotransferase 39 IU/L (<35); Albumin 3.1 g/dL (3.5-5.0); Albumin Globulin Ratio 0.9 (1.0-2.8); Alkaline Phosphatase 151 U/L (38-126); Appearance Urine UA CLOUDY; Aspartate Aminotransferase 46 IU/L (14-36); BUN Creatinine Ratio 13.6 (6-22); Bilirubin Total 0.6 mg/dL (0.2-1.3); Bilirubin Urine UA NEGATIVE (NEGATIVE); Blood Urea Nitrogen 14 mg/dL (7-17); Calcium 9.3 mg/dL (8.4-10.2); Carbon Dioxide 29 mmol/L (22-32); Chloride 104 mmol/L (98-107); Color Urine UA YELLOW; Estimated Glomerular Filt Rate 56 mL/min (>60); Globulin 3.5 g/dL (1.7-4.1); Glucose 92 mg/dL (80-110); Glucose Urine UA NEGATIVE (Negative); HEMOLYSIS < 15 (0-50); Ketones Urine UA NEGATIVE (NEGATIVE); Leukocyte Esterase Urine UA 2+ (NEGATIVE); Nitrite Urine UA NEGATIVE (Negative); Occult Blood Urine UA TRACE-INTACT (Negative); Protein Urine UA 1+ (Negative); Sodium 139 mmol/L (137-145); Specific Gravity Urine UA 1.025 (1.000-1.035); Total Protein 6.6 g/dL (6.3-8.2)
[2022-12-01 20:10] LABS: Bacteria Urine Many (>30); RBC Urine 1-5/HPF (0-5/HPF); WBC Urine 10-30/HPF (0-5/HPF)
== END ==
PROVIDERS: PCP Physician Assistant; Visit Provider Internal Medicine
DX: N39.0 Urinary tract infection, site not specified (principal); R94.5 Abnormal results of liver function studies
CPT/HCPCS: 80053; 81001; 87077; 87086; 87186

== ENCOUNTER → 2023-02-16 11:30 | Outpatient (CLI) | payer BC, SELFPAY ==
[2023-02-16 20:19] LABS: Add Manual Diff / Slide Review NO; Basophils Absolute Auto 0 /uL (0-100); Basophils Percent Auto 0.7 % (0-2); Eosinophils Absolute Auto 200 /uL (0-450); Eosinophils Percent Auto 3.4 % (2-4); Hematocrit 38.6 % (36-46); Hemoglobin 13.1 g/dL (12.0-16.0); Lymphocytes Absolute Auto 1500 /uL (1100-4500); Lymphocytes Percent Auto 28.7 % (25-40); Mean Corpuscular HGB Conc 34.1 % (30-36); Mean Corpuscular Hemoglobin 33.2 PG (26-34); Mean Corpuscular Volume 97.5 fL (80-100); Monocytes Absolute Auto 600 /uL (0-900); Neutrophils Absolute Auto 3000 /uL (1500-7000); Neutrophils Percent Auto 56.2 % (50-75); Platelet Count 193 X10^3/uL (150-400); Red Blood Cell Count 3.96 X10^6/uL (4.0-5.2); Red Cell Distribution Width 13.7 % (11.6-14.8); White Blood Cell Count 5.3 X10^3/uL (4.5-11.0)
[2023-02-16 20:21] LABS: Alanine Aminotransferase 28 IU/L (<35); Albumin 3.8 g/dL (3.5-5.0); Albumin Globulin Ratio 1.2 (1.0-2.8); Alkaline Phosphatase 100 U/L (38-126); Aspartate Aminotransferase 42 IU/L (14-36); BUN Creatinine Ratio 17.9 (6-22); Bilirubin Total 0.7 mg/dL (0.2-1.3); Blood Urea Nitrogen 14 mg/dL (7-17); Calcium 9.6 mg/dL (8.4-10.2); Carbon Dioxide 32 mmol/L (22-32); Chloride 103 mmol/L (98-107); Estimated Glomerular Filt Rate > 60 mL/min (>60); Globulin 3.3 g/dL (1.7-4.1); Glucose 93 mg/dL (80-110); HEMOLYSIS < 15 (0-50); Potassium 4.3 mmol/L (3.4-5.1); Sodium 138 mmol/L (137-145); Total Protein 7.1 g/dL (6.3-8.2)
[2023-02-16 20:26] LABS: HEMOLYSIS < 15 (0-50); Iron 104 ug/dL (37-170)
[2023-02-16 20:29] LABS: Cholesterol 223 mg/dL (140-199); HDL Cholesterol 84 mg/dL (40-60); LDL Cholesterol Calculated 119 mg/dL (<100); Triglycerides 101 mg/dL (35-150)
[2023-02-16 20:37] LABS: Percent Iron Saturation 31 % (15-50); Total Iron Binding Capacity 336 ug/dL (265-497); Transferrin 280 mg/dL (206-381)
[2023-02-16 21:10] LABS: Vitamin B12 272 pg/mL (239-931)
== END ==
PROVIDERS: PCP Physician Assistant; Visit Provider Family Medicine
DX: C50.111 Malignant neoplasm of central portion of right female breast (principal); D70.8 Other neutropenia; N18.31 Chronic kidney disease, stage 3a; R79.89 Other specified abnormal findings of blood chemistry; E78.2 Mixed hyperlipidemia
CPT/HCPCS: 80053; 80061; 82607; 83540; 83550; 85025

== ENCOUNTER → 2023-04-01 13:53 | Outpatient (CLI) | payer BC, SELFPAY ==
[2023-04-01 19:42] LABS: Add Manual Diff / Slide Review NO; Basophils Absolute Auto 0 /uL (0-100); Basophils Percent Auto 0.7 % (0-2); Eosinophils Absolute Auto 100 /uL (0-450); Eosinophils Percent Auto 1.8 % (2-4); Hematocrit 37.7 % (36-46); Hemoglobin 12.8 g/dL (12.0-16.0); Lymphocytes Absolute Auto 1400 /uL (1100-4500); Lymphocytes Percent Auto 41.3 % (25-40); Mean Corpuscular HGB Conc 34.1 % (30-36); Mean Corpuscular Hemoglobin 32.3 PG (26-34); Mean Corpuscular Volume 94.8 fL (80-100); Monocytes Absolute Auto 300 /uL (0-900); Monocytes Percent Auto 7.7 % (3-14); Neutrophils Absolute Auto 1600 /uL (1500-7000); Neutrophils Percent Auto 48.5 % (50-75); Platelet Count 124 X10^3/uL (150-400); Red Blood Cell Count 3.98 X10^6/uL (4.0-5.2); Red Cell Distribution Width 12.8 % (11.6-14.8); White Blood Cell Count 3.3 X10^3/uL (4.5-11.0)
[2023-04-01 19:48] LABS: Alanine Aminotransferase 88 IU/L (<35); Albumin 3.8 g/dL (3.5-5.0); Albumin Globulin Ratio 1.4 (1.0-2.8); Alkaline Phosphatase 91 U/L (38-126); Aspartate Aminotransferase 86 IU/L (14-36); BUN Creatinine Ratio 19.4 (6-22); Bilirubin Total 0.6 mg/dL (0.2-1.3); Blood Urea Nitrogen 20 mg/dL (7-17); Calcium 9.5 mg/dL (8.4-10.2); Carbon Dioxide 31 mmol/L (22-32); Chloride 102 mmol/L (98-107); Estimated Glomerular Filt Rate 56 mL/min (>60); Globulin 2.7 g/dL (1.7-4.1); Glucose 156 mg/dL (80-110); HEMOLYSIS < 15 (0-50); Potassium 3.8 mmol/L (3.4-5.1); Sodium 138 mmol/L (137-145); Total Protein 6.5 g/dL (6.3-8.2)
[2023-04-01 20:19] LABS: Cancer Antigen 125 47.3 U/mL (0-35); Carcinoembryonic Antigen 4.3 ng/mL (0.1-3.0)
[2023-04-03 08:44] LABS: CA 15-3 32.4 U/mL (0.0-25.0)
== END ==
PROVIDERS: Internal Medicine Medical Oncology; Physician Assistant Medical; PCP Physician Assistant
DX: C79.81 Secondary malignant neoplasm of breast (principal); C50.919 Malignant neoplasm of unspecified site of unspecified female breast
CPT/HCPCS: 80053; 82378; 85025; 86300; 86304

== ENCOUNTER → 2023-05-14 13:54 | Outpatient (CLI) | payer BC, SELFPAY ==
[2023-05-14 20:27] LABS: Alanine Aminotransferase 113 IU/L (<35); Albumin Globulin Ratio 1.3 (1.0-2.8); Alkaline Phosphatase 104 U/L (38-126); Aspartate Aminotransferase 109 IU/L (14-36); BUN Creatinine Ratio 16.1 (6-22); Bilirubin Total 0.5 mg/dL (0.2-1.3); Blood Urea Nitrogen 18 mg/dL (7-17); Calcium 9.7 mg/dL (8.4-10.2); Carbon Dioxide 30 mmol/L (22-32); Chloride 101 mmol/L (98-107); Estimated Glomerular Filt Rate 50 mL/min (>60); Glucose 118 mg/dL (80-110); HEMOLYSIS < 15 (0-50); Potassium 3.9 mmol/L (3.4-5.1); Sodium 138 mmol/L (137-145)
[2023-05-14 20:28] LABS: Add Manual Diff / Slide Review NO; Basophils Absolute Auto 0 /uL (0-100); Basophils Percent Auto 0.7 % (0-2); Eosinophils Absolute Auto 100 /uL (0-450); Eosinophils Percent Auto 1.6 % (2-4); Hematocrit 36.1 % (36-46); Hemoglobin 12.5 g/dL (12.0-16.0); Lymphocytes Absolute Auto 1600 /uL (1100-4500); Lymphocytes Percent Auto 36.2 % (25-40); Mean Corpuscular HGB Conc 34.6 % (30-36); Mean Corpuscular Hemoglobin 32.3 PG (26-34); Mean Corpuscular Volume 93.1 fL (80-100); Monocytes Absolute Auto 400 /uL (0-900); Neutrophils Absolute Auto 2200 /uL (1500-7000); Neutrophils Percent Auto 51.5 % (50-75); Platelet Count 148 X10^3/uL (150-400); Red Blood Cell Count 3.87 X10^6/uL (4.0-5.2); Red Cell Distribution Width 15.3 % (11.6-14.8); White Blood Cell Count 4.3 X10^3/uL (4.5-11.0)
[2023-05-14 20:48] LABS: Cancer Antigen 125 75.9 U/mL (0-35); Carcinoembryonic Antigen 5.9 ng/mL (0.1-3.0)
== END ==
PROVIDERS: PCP Physician Assistant; Visit Provider Physician Assistant Medical
DX: C50.911 Malignant neoplasm of unspecified site of right female breast (principal); C50.919 Malignant neoplasm of unspecified site of unspecified female breast; C79.51 Secondary malignant neoplasm of bone
CPT/HCPCS: 80053; 82378; 85025; 86300; 86304

== ENCOUNTER → 2023-06-18 09:54 | Outpatient (CLI) | payer BC, SELFPAY ==
[2023-06-18 20:57] LABS: Add Manual Diff / Slide Review NO; Basophils Absolute Auto 0 /uL (0-100); Basophils Percent Auto 0.5 % (0-2); Eosinophils Absolute Auto 200 /uL (0-450); Eosinophils Percent Auto 3.4 % (2-4); Hematocrit 37.7 % (36-46); Hemoglobin 12.8 g/dL (12.0-16.0); Lymphocytes Absolute Auto 1600 /uL (1100-4500); Mean Corpuscular HGB Conc 33.8 % (30-36); Mean Corpuscular Hemoglobin 32.3 PG (26-34); Mean Corpuscular Volume 95.4 fL (80-100); Monocytes Absolute Auto 600 /uL (0-900); Monocytes Percent Auto 13.1 % (3-14); Neutrophils Absolute Auto 2500 /uL (1500-7000); Platelet Count 149 X10^3/uL (150-400); Red Blood Cell Count 3.95 X10^6/uL (4.0-5.2); Red Cell Distribution Width 15.1 % (11.6-14.8); White Blood Cell Count 4.9 X10^3/uL (4.5-11.0)
[2023-06-19 03:43] LABS: Alanine Aminotransferase 59 IU/L (<35); Albumin Globulin Ratio 1.4 (1.0-2.8); Alkaline Phosphatase 75 U/L (38-126); Aspartate Aminotransferase 75 IU/L (14-36); BUN Creatinine Ratio 14.3 (6-22); Bilirubin Total 0.6 mg/dL (0.2-1.3); Blood Urea Nitrogen 12 mg/dL (7-17); Calcium 9.5 mg/dL (8.4-10.2); Carbon Dioxide 28 mmol/L (22-32); Chloride 103 mmol/L (98-107); Estimated Glomerular Filt Rate > 60 mL/min (>60); Globulin 2.9 g/dL (1.7-4.1); Glucose 87 mg/dL (80-110); HEMOLYSIS < 15 (0-50); Potassium 3.9 mmol/L (3.4-5.1); Sodium 140 mmol/L (137-145); Total Protein 6.9 g/dL (6.3-8.2)
[2023-06-19 04:14] LABS: Cancer Antigen 125 121 U/mL (0-35); Carcinoembryonic Antigen 8.6 ng/mL (0.1-3.0)
== END ==
PROVIDERS: PCP Physician Assistant; Visit Provider Physician Assistant Medical
DX: C50.919 Malignant neoplasm of unspecified site of unspecified female breast (principal)
CPT/HCPCS: 80053; 82378; 85025; 86300; 86304

== ENCOUNTER → 2023-07-02 14:35 | Outpatient (CLI) | payer BC, SELFPAY ==
[2023-07-02 21:08] LABS: Add Manual Diff / Slide Review NO; Basophils Absolute Auto 0 /uL (0-100); Basophils Percent Auto 0.7 % (0-2); Eosinophils Absolute Auto 200 /uL (0-450); Eosinophils Percent Auto 4.1 % (2-4); Hemoglobin 12.9 g/dL (12.0-16.0); Lymphocytes Absolute Auto 1700 /uL (1100-4500); Lymphocytes Percent Auto 33.1 % (25-40); Mean Corpuscular HGB Conc 33.9 % (30-36); Mean Corpuscular Hemoglobin 32.2 PG (26-34); Monocytes Absolute Auto 700 /uL (0-900); Neutrophils Absolute Auto 2600 /uL (1500-7000); Neutrophils Percent Auto 49.1 % (50-75); Platelet Count 127 X10^3/uL (150-400); White Blood Cell Count 5.2 X10^3/uL (4.5-11.0)
[2023-07-03 05:44] LABS: Alanine Aminotransferase 44 IU/L (<35); Albumin Globulin Ratio 1.3 (1.0-2.8); Alkaline Phosphatase 74 U/L (38-126); Aspartate Aminotransferase 66 IU/L (14-36); BUN Creatinine Ratio 17.6 (6-22); Bilirubin Total 0.5 mg/dL (0.2-1.3); Blood Urea Nitrogen 15 mg/dL (7-17); Calcium 9.7 mg/dL (8.4-10.2); Carbon Dioxide 29 mmol/L (22-32); Chloride 103 mmol/L (98-107); Estimated Glomerular Filt Rate > 60 mL/min (>60); Globulin 3.1 g/dL (1.7-4.1); Glucose 111 mg/dL (80-110); HEMOLYSIS < 15 (0-50); Potassium 3.8 mmol/L (3.4-5.1); Sodium 138 mmol/L (137-145); Total Protein 7.1 g/dL (6.3-8.2)
[2023-07-03 06:22] LABS: Cancer Antigen 125 156 U/mL (0-35); Carcinoembryonic Antigen 10.6 ng/mL (0.1-3.0)
[2023-07-04 08:50] LABS: CA 15-3 56.3 U/mL (0.0-25.0)
== END ==
PROVIDERS: PCP Physician Assistant; Visit Provider Physician Assistant Medical
DX: C50.919 Malignant neoplasm of unspecified site of unspecified female breast (principal)
CPT/HCPCS: 80053; 82378; 85025; 86300; 86304

== ENCOUNTER → 2023-07-29 10:59 | Outpatient (CLI) | payer BC, SELFPAY ==
[2023-07-29 20:09] LABS: Alanine Aminotransferase 26 IU/L (<35); Albumin 4.1 g/dL (3.5-5.0); Albumin Globulin Ratio 1.4 (1.0-2.8); Alkaline Phosphatase 66 U/L (38-126); Aspartate Aminotransferase 37 IU/L (14-36); BUN Creatinine Ratio 15.1 (6-22); Bilirubin Total 0.7 mg/dL (0.2-1.3); Blood Urea Nitrogen 18 mg/dL (7-17); Calcium 10.2 mg/dL (8.4-10.2); Carbon Dioxide 30 mmol/L (22-32); Chloride 102 mmol/L (98-107); Estimated Glomerular Filt Rate 47 mL/min (>60); Glucose 76 mg/dL (80-110); HEMOLYSIS < 15 (0-50); Potassium 4.1 mmol/L (3.4-5.1); Sodium 140 mmol/L (137-145); Total Protein 7.1 g/dL (6.3-8.2)
[2023-07-29 20:12] LABS: Hematocrit 36.8 % (36-46); Hemoglobin 12.5 g/dL (12.0-16.0); Mean Corpuscular Volume 94.3 fL (80-100); Platelet Count 112 X10^3/uL (150-400); Red Blood Cell Count 3.91 X10^6/uL (4.0-5.2)
[2023-07-29 20:28] LABS: Add Manual Diff / Slide Review YES; White Blood Cell Count 1.7 X10^3/uL (4.5-11.0)
[2023-07-29 20:37] LABS: Cancer Antigen 125 349 U/mL (0-35); Carcinoembryonic Antigen 20.5 ng/mL (0.1-3.0)
[2023-07-29 21:06] LABS: Neutrophils Absolute Manual 663 /uL (3000-5900); Total Cells Counted 100
[2023-07-29 21:07] LABS: RBC Morphology Normal Morphology
[2023-07-31 13:10] LABS: CA 15-3 79.8 U/mL (0.0-25.0)
== END ==
PROVIDERS: PCP Physician Assistant; Visit Provider Physician Assistant Medical
DX: C50.919 Malignant neoplasm of unspecified site of unspecified female breast (principal)
CPT/HCPCS: 80053; 82378; 85007; 85025; 86300; 86304

== ENCOUNTER → 2023-09-30 14:03 | Outpatient (CLI) | payer BC, SELFPAY ==
[2023-09-30 19:37] LABS: Add Manual Diff / Slide Review NO; Alanine Aminotransferase 24 IU/L (<35); Albumin 3.9 g/dL (3.5-5.0); Albumin Globulin Ratio 1.3 (1.0-2.8); Alkaline Phosphatase 61 U/L (38-126); Aspartate Aminotransferase 40 IU/L (14-36); BUN Creatinine Ratio 17.7 (6-22); Basophils Absolute Auto 0 /uL (0-100); Basophils Percent Auto 1.2 % (0-2); Bilirubin Total 0.6 mg/dL (0.2-1.3); Blood Urea Nitrogen 14 mg/dL (7-17); Carbon Dioxide 29 mmol/L (22-32); Chloride 103 mmol/L (98-107); Eosinophils Absolute Auto 0 /uL (0-450); Eosinophils Percent Auto 1.3 % (2-4); Estimated Glomerular Filt Rate > 60 mL/min (>60); Globulin 2.9 g/dL (1.7-4.1); Glucose 88 mg/dL (80-110); HEMOLYSIS < 15 (0-50); Hematocrit 34.4 % (36-46); Lymphocytes Absolute Auto 1500 /uL (1100-4500); Lymphocytes Percent Auto 50.1 % (25-40); Mean Corpuscular HGB Conc 34.9 % (30-36); Mean Corpuscular Hemoglobin 33.7 PG (26-34); Mean Corpuscular Volume 96.7 fL (80-100); Monocytes Absolute Auto 500 /uL (0-900); Monocytes Percent Auto 15.7 % (3-14); Neutrophils Absolute Auto 1000 /uL (1500-7000); Neutrophils Percent Auto 31.7 % (50-75); Platelet Count 86 X10^3/uL (150-400); Potassium 4.2 mmol/L (3.4-5.1); Red Blood Cell Count 3.56 X10^6/uL (4.0-5.2); Red Cell Distribution Width 18.7 % (11.6-14.8); Sodium 137 mmol/L (137-145); Total Protein 6.8 g/dL (6.3-8.2)
[2023-09-30 20:09] LABS: Cancer Antigen 125 562 U/mL (0-35); Carcinoembryonic Antigen 31.9 ng/mL (0.1-3.0)
== END ==
PROVIDERS: PCP Physician Assistant; Visit Provider Physician Assistant Medical
DX: C50.919 Malignant neoplasm of unspecified site of unspecified female breast (principal)
CPT/HCPCS: 80053; 82378; 85025; 86300; 86304

== ENCOUNTER → 2023-10-14 14:26 | Outpatient (CLI) | payer BC, SELFPAY ==
[2023-10-14 19:35] LABS: Add Manual Diff / Slide Review NO; Basophils Absolute Auto 0 /uL (0-100); Eosinophils Absolute Auto 100 /uL (0-450); Eosinophils Percent Auto 1.9 % (2-4); Hematocrit 35.1 % (36-46); Hemoglobin 12.1 g/dL (12.0-16.0); Lymphocytes Absolute Auto 1300 /uL (1100-4500); Lymphocytes Percent Auto 37.2 % (25-40); Mean Corpuscular HGB Conc 34.4 % (30-36); Mean Corpuscular Hemoglobin 33.2 PG (26-34); Mean Corpuscular Volume 96.7 fL (80-100); Monocytes Absolute Auto 200 /uL (0-900); Monocytes Percent Auto 5.7 % (3-14); Neutrophils Absolute Auto 1900 /uL (1500-7000); Neutrophils Percent Auto 54.2 % (50-75); Platelet Count 231 X10^3/uL (150-400); Red Blood Cell Count 3.63 X10^6/uL (4.0-5.2); Red Cell Distribution Width 17.5 % (11.6-14.8); White Blood Cell Count 3.5 X10^3/uL (4.5-11.0)
[2023-10-14 20:06] LABS: Alanine Aminotransferase 27 IU/L (<35); Albumin 3.9 g/dL (3.5-5.0); Albumin Globulin Ratio 1.3 (1.0-2.8); Alkaline Phosphatase 70 U/L (38-126); Aspartate Aminotransferase 48 IU/L (14-36); BUN Creatinine Ratio 19.1 (6-22); Bilirubin Total 0.6 mg/dL (0.2-1.3); Blood Urea Nitrogen 22 mg/dL (7-17); Calcium 10.5 mg/dL (8.4-10.2); Carbon Dioxide 25 mmol/L (22-32); Chloride 103 mmol/L (98-107); Estimated Glomerular Filt Rate 49 mL/min (>60); Glucose 84 mg/dL (80-110); HEMOLYSIS < 15 (0-50); Potassium 4.2 mmol/L (3.4-5.1); Sodium 138 mmol/L (137-145); Total Protein 6.9 g/dL (6.3-8.2)
[2023-10-14 20:29] LABS: Cancer Antigen 125 511 U/mL (0-35); Carcinoembryonic Antigen 31.1 ng/mL (0.1-3.0)
== END ==
PROVIDERS: PCP Physician Assistant; Visit Provider Physician Assistant Medical
DX: C50.919 Malignant neoplasm of unspecified site of unspecified female breast (principal)
CPT/HCPCS: 80053; 82378; 85025; 86300; 86304

== ENCOUNTER → 2023-11-04 09:05 | Outpatient (CLI) | payer BC, SELFPAY ==
[2023-11-04 19:23] LABS: Add Manual Diff / Slide Review NO; Basophils Absolute Auto 0 /uL (0-100); Basophils Percent Auto 0.8 % (0-2); Eosinophils Absolute Auto 0 /uL (0-450); Eosinophils Percent Auto 1.1 % (2-4); Hematocrit 33.9 % (36-46); Hemoglobin 11.6 g/dL (12.0-16.0); Lymphocytes Absolute Auto 1100 /uL (1100-4500); Lymphocytes Percent Auto 51.8 % (25-40); Mean Corpuscular HGB Conc 34.3 % (30-36); Mean Corpuscular Hemoglobin 33.8 PG (26-34); Mean Corpuscular Volume 98.4 fL (80-100); Monocytes Absolute Auto 300 /uL (0-900); Monocytes Percent Auto 11.9 % (3-14); Neutrophils Absolute Auto 700 /uL (1500-7000); Neutrophils Percent Auto 34.4 % (50-75); Platelet Count 125 X10^3/uL (150-400); Red Blood Cell Count 3.44 X10^6/uL (4.0-5.2); Red Cell Distribution Width 16.8 % (11.6-14.8); White Blood Cell Count 2.1 X10^3/uL (4.5-11.0)
[2023-11-04 19:58] LABS: Alanine Aminotransferase 26 IU/L (<35); Albumin 3.9 g/dL (3.5-5.0); Albumin Globulin Ratio 1.3 (1.0-2.8); Alkaline Phosphatase 72 U/L (38-126); Aspartate Aminotransferase 41 IU/L (14-36); BUN Creatinine Ratio 16.5 (6-22); Bilirubin Total 0.6 mg/dL (0.2-1.3); Blood Urea Nitrogen 16 mg/dL (7-17); Calcium 9.6 mg/dL (8.4-10.2); Carbon Dioxide 26 mmol/L (22-32); Chloride 103 mmol/L (98-107); Estimated Glomerular Filt Rate 60 mL/min (>60); Glucose 85 mg/dL (80-110); HEMOLYSIS < 15 (0-50); Potassium 4.3 mmol/L (3.4-5.1); Sodium 136 mmol/L (137-145); Total Protein 6.9 g/dL (6.3-8.2)
[2023-11-04 20:21] LABS: Cancer Antigen 125 775 U/mL (0-35); Carcinoembryonic Antigen 45.5 ng/mL (0.1-3.0)
== END ==
PROVIDERS: PCP Family Medicine; Visit Provider Physician Assistant Medical
DX: C50.919 Malignant neoplasm of unspecified site of unspecified female breast (principal)
CPT/HCPCS: 80053; 82378; 85025; 86300; 86304

== ENCOUNTER → 2023-11-09 13:04 | Outpatient (CLI) | payer BC, SELFPAY ==
[2023-11-09 19:21] LABS: Alanine Aminotransferase 29 IU/L (<35); Albumin 4.1 g/dL (3.5-5.0); Albumin Globulin Ratio 1.4 (1.0-2.8); Alkaline Phosphatase 67 U/L (38-126); Aspartate Aminotransferase 50 IU/L (14-36); BUN Creatinine Ratio 17.9 (6-22); Bilirubin Total 0.7 mg/dL (0.2-1.3); Blood Urea Nitrogen 19 mg/dL (7-17); Calcium 9.8 mg/dL (8.4-10.2); Carbon Dioxide 28 mmol/L (22-32); Chloride 102 mmol/L (98-107); Estimated Glomerular Filt Rate 54 mL/min (>60); Globulin 2.9 g/dL (1.7-4.1); Glucose 78 mg/dL (80-110); HEMOLYSIS < 15 (0-50); Potassium 4.4 mmol/L (3.4-5.1); Sodium 138 mmol/L (137-145)
[2023-11-09 19:25] LABS: Add Manual Diff / Slide Review NO; Basophils Absolute Auto 0 /uL (0-100); Basophils Percent Auto 1.3 % (0-2); Eosinophils Absolute Auto 0 /uL (0-450); Eosinophils Percent Auto 0.8 % (2-4); Hemoglobin 11.9 g/dL (12.0-16.0); Lymphocytes Absolute Auto 1500 /uL (1100-4500); Lymphocytes Percent Auto 48.9 % (25-40); Mean Corpuscular HGB Conc 33.9 % (30-36); Mean Corpuscular Hemoglobin 33.5 PG (26-34); Mean Corpuscular Volume 98.9 fL (80-100); Monocytes Absolute Auto 600 /uL (0-900); Monocytes Percent Auto 19.5 % (3-14); Neutrophils Absolute Auto 900 /uL (1500-7000); Neutrophils Percent Auto 29.5 % (50-75); Platelet Count 163 X10^3/uL (150-400); Red Blood Cell Count 3.54 X10^6/uL (4.0-5.2); Red Cell Distribution Width 17.9 % (11.6-14.8); White Blood Cell Count 3.2 X10^3/uL (4.5-11.0)
== END ==
PROVIDERS: PCP Family Medicine; Visit Provider Physician Assistant Medical
DX: C50.919 Malignant neoplasm of unspecified site of unspecified female breast (principal)
CPT/HCPCS: 80053; 85025

== ENCOUNTER → 2023-12-09 14:28 | Outpatient (CLI) | payer MEDICARE, SELFPAY ==
[2023-12-09 20:52] LABS: Appearance Urine UA CLOUDY; Bilirubin Urine UA NEGATIVE (NEGATIVE); Color Urine UA YELLOW; Glucose Urine UA NEGATIVE (Negative); Ketones Urine UA NEGATIVE (NEGATIVE); Leukocyte Esterase Urine UA 1+ (NEGATIVE); Nitrite Urine UA POSITIVE (Negative); Occult Blood Urine UA TRACE-INTACT (Negative); Protein Urine UA TRACE (Negative); Urobilinogen Urine UA 0.2 E.U./dL (0.2)
[2023-12-09 20:57] LABS: pH Urine UA 6.5 (4.5-8.0)
[2023-12-09 20:58] LABS: Bacteria Urine Many (>30); RBC Urine 1-5/HPF (0-5/HPF); Squamous Epithelial Cell Urine 0-1 /HPF (0-5/HPF); Urine Volume 10mL (spun); WBC Urine 5-10/HPF (0-5/HPF)
[2023-12-09 20:59] LABS: Culture Indicated Urine Specimen Cultured
== END ==
PROVIDERS: PCP Family Medicine; Visit Provider Nurse Practitioner Adult Health
DX: N39.0 Urinary tract infection, site not specified (principal)
CPT/HCPCS: 81001; 87077; 87086; 87186

== ENCOUNTER → 2023-12-10 10:39 | Outpatient (CLI) | payer MEDICARE, OTHER, SELFPAY ==
[2023-12-10 19:52] LABS: Add Manual Diff / Slide Review NO; Basophils Absolute Auto 0 /uL (0-100); Basophils Percent Auto 0.7 % (0-2); Eosinophils Absolute Auto 0 /uL (0-450); Eosinophils Percent Auto 0.9 % (2-4); Hemoglobin 11.3 g/dL (12.0-16.0); Lymphocytes Absolute Auto 700 /uL (1100-4500); Lymphocytes Percent Auto 32.8 % (25-40); Mean Corpuscular HGB Conc 34.4 % (30-36); Mean Corpuscular Hemoglobin 34.3 PG (26-34); Mean Corpuscular Volume 99.8 fL (80-100); Monocytes Absolute Auto 300 /uL (0-900); Monocytes Percent Auto 12.6 % (3-14); Neutrophils Absolute Auto 1200 /uL (1500-7000); Platelet Count 112 X10^3/uL (150-400); Red Blood Cell Count 3.31 X10^6/uL (4.0-5.2); Red Cell Distribution Width 17.6 % (11.6-14.8); White Blood Cell Count 2.2 X10^3/uL (4.5-11.0)
[2023-12-10 20:21] LABS: Alanine Aminotransferase 27 IU/L (<35); Albumin Globulin Ratio 1.4 (1.0-2.8); Alkaline Phosphatase 71 U/L (38-126); Aspartate Aminotransferase 44 IU/L (14-36); BUN Creatinine Ratio 18.9 (6-22); Bilirubin Total 0.6 mg/dL (0.2-1.3); Blood Urea Nitrogen 18 mg/dL (7-17); Calcium 9.8 mg/dL (8.4-10.2); Carbon Dioxide 25 mmol/L (22-32); Chloride 106 mmol/L (98-107); Estimated Glomerular Filt Rate > 60 mL/min (>60); Globulin 2.9 g/dL (1.7-4.1); Glucose 96 mg/dL (80-110); HEMOLYSIS < 15 (0-50); Potassium 3.8 mmol/L (3.4-5.1); Sodium 140 mmol/L (137-145); Total Protein 6.9 g/dL (6.3-8.2)
[2023-12-10 22:03] LABS: Cancer Antigen 125 1080 U/mL (0-35)
== END ==
PROVIDERS: PCP Family Medicine; Visit Provider Physician Assistant Medical
DX: C50.919 Malignant neoplasm of unspecified site of unspecified female breast (principal); C50.911 Malignant neoplasm of unspecified site of right female breast
CPT/HCPCS: 80053; 82378; 85025; 86300; 86304

== ENCOUNTER → 2024-04-19 14:17 | Outpatient (CLI) | payer MEDICARE, OTHER, SELFPAY | PROVIDERS: PCP Family Medicine; Visit Provider Family Medicine | DX: R30.0 Dysuria (principal) | CPT/HCPCS: 87077; 87086; 87186 ==

== ENCOUNTER → 2024-07-04 14:24 | Outpatient (CLI) | payer MEDICARE, OTHER, SELFPAY | PROVIDERS: PCP Family Medicine; Visit Provider Physician Assistant | DX: R30.0 Dysuria (principal) | CPT/HCPCS: 87086 ==

== ENCOUNTER → 2024-08-09 11:09 | Outpatient (CLI) | payer MEDICARE, OTHER, SELFPAY ==
[2024-08-09 19:00] LABS: Add Manual Diff / Slide Review NO; Basophils Absolute Auto 0 /uL (0-100); Basophils Percent Auto 0.7 % (0-2); Eosinophils Absolute Auto 200 /uL (0-450); Eosinophils Percent Auto 5.3 % (2-4); Hematocrit 35.3 % (36-46); Hemoglobin 11.5 g/dL (12.0-16.0); Lymphocytes Absolute Auto 900 /uL (1100-4500); Lymphocytes Percent Auto 27.3 % (25-40); Mean Corpuscular HGB Conc 32.7 % (30-36); Mean Corpuscular Hemoglobin 31.1 PG (26-34); Monocytes Absolute Auto 300 /uL (0-900); Monocytes Percent Auto 10.1 % (3-14); Neutrophils Absolute Auto 1900 /uL (1500-7000); Neutrophils Percent Auto 56.6 % (50-75); Platelet Count 210 X10^3/uL (150-400); Red Blood Cell Count 3.72 X10^6/uL (4.0-5.2); Red Cell Distribution Width 15.7 % (11.6-14.8); White Blood Cell Count 3.4 X10^3/uL (4.5-11.0)
[2024-08-09 19:04] LABS: Alanine Aminotransferase 42 IU/L (<35); Albumin 4.1 g/dL (3.5-5.0); Albumin Globulin Ratio 1.5 (1.0-2.8); Alkaline Phosphatase 75 U/L (38-126); Aspartate Aminotransferase 52 IU/L (14-36); BUN Creatinine Ratio 17.5 (6-22); Bilirubin Total 0.5 mg/dL (0.2-1.3); Blood Urea Nitrogen 22 mg/dL (7-17); Calcium 9.8 mg/dL (8.4-10.2); Carbon Dioxide 26 mmol/L (22-32); Chloride 105 mmol/L (98-107); Cholesterol 218 mg/dL (140-199); Estimated Glomerular Filt Rate 43 mL/min (>60); Globulin 2.7 g/dL (1.7-4.1); Glucose 88 mg/dL (80-110); HDL Cholesterol 91 mg/dL (40-60); HEMOLYSIS < 15 (0-50); LDL Cholesterol Calculated 105 mg/dL (<100); Potassium 4.5 mmol/L (3.4-5.1); Sodium 137 mmol/L (137-145); Total Protein 6.8 g/dL (6.3-8.2); Triglycerides 108 mg/dL (35-150)
== END ==
PROVIDERS: PCP Family Medicine; Visit Provider Family Medicine
DX: E78.2 Mixed hyperlipidemia (principal); D61.818 Other pancytopenia; R79.89 Other specified abnormal findings of blood chemistry; N18.31 Chronic kidney disease, stage 3a
CPT/HCPCS: 80053; 80061; 85025

== ENCOUNTER → 2024-10-04 11:23 | Outpatient (CLI) | payer MEDICARE, OTHER, SELFPAY | PROVIDERS: PCP Family Medicine; Referring Provider Physician Assistant; Visit Provider Physician Assistant | DX: R30.0 Dysuria (principal); R35.0 Frequency of micturition; Z87.440 Personal history of urinary (tract) infections | CPT/HCPCS: 87086 ==

== ENCOUNTER → 2025-05-17 11:12 | Outpatient (CLI) | payer MEDICARE, OTHER, SELFPAY ==
[2025-05-17 19:48] LABS: Add Manual Diff / Slide Review NO; Hematocrit 29.8 % (36-46); Hemoglobin 10.0 g/dL (12.0-16.0); Lymphocytes Absolute Auto 1600 /uL (1100-4500); Mean Corpuscular HGB Conc 33.6 % (30-36); Mean Corpuscular Hemoglobin 31.7 PG (26-34); Mean Corpuscular Volume 94.3 fL (80-100); Platelet Count 180 X10^3/uL (150-400)
[2025-05-17 19:55] LABS: Alanine Aminotransferase 28 IU/L (<35); Albumin 3.8 g/dL (3.5-5.0); Albumin Globulin Ratio 1.8 (1.0-2.8); Alkaline Phosphatase 83 U/L (38-126); Blood Urea Nitrogen 16 mg/dL (7-17); Calcium 9.5 mg/dL (8.4-10.2); Carbon Dioxide 28 mmol/L (22-32); Chloride 103 mmol/L (98-107); Cholesterol 198 mg/dL (140-199); Estimated Glomerular Filt Rate 48 mL/min (>60); Globulin 2.1 g/dL (1.7-4.1); Glucose 131 mg/dL (70-99); HDL Cholesterol 69 mg/dL (40-60); HEMOLYSIS < 15 (0-50); Potassium 4.3 mmol/L (3.4-5.1); Sodium 139 mmol/L (137-145); Total Protein 5.9 g/dL (6.3-8.2); Triglycerides 132 mg/dL (35-150)
== END ==
PROVIDERS: PCP Family Medicine; Visit Provider Family Medicine
DX: R79.89 Other specified abnormal findings of blood chemistry (principal); E78.2 Mixed hyperlipidemia; D61.818 Other pancytopenia; N18.31 Chronic kidney disease, stage 3a
CPT/HCPCS: 80053; 80061; 85025

== ENCOUNTER 2025-06-30 18:06 | Emergency (ER) | payer MEDICARE, OTHER, SELFPAY ==
[2025-06-30] VITALS (14 sets, daily range): BP systolic 124–140; BP diastolic 63–89; PULSE 66–80; RESP 11–18; TEMP 36.9; O2SAT 94–99; BMI 24.4
[2025-06-30] MEDS: MORPHINE 4 MG/ML INJ IV (18:57)
--- NOTE | 2025-06-30 19:03 | PC.NURSE ---
Pt reports pain is returning. Dr [place] notified. Verbal order received for 4 mg IV morphine
--- NOTE | 2025-06-30 21:40 | ED.GENADULT ---
HPI - General Adult General Chief complaint: Abdominal Pain Stated complaint: L Back Pain Time Seen by Provider: 06/30/25 20:00 Source: EMS, RN notes reviewed and old records reviewed Mode of arrival: EMS Limitations: no limitations History of Present Illness HPI narrative: 80-year-old female history of breast cancer with double mastectomy with the metastases in the pelvis, spine and peritoneum. Patient notes she has been on a medication called true cap which normally causes a lot of diarrhea that has stopped by her oncologist last Thursday. Patient states she started having diarrhea last several days fairly frequent no bright red blood or black stool sometimes it is very watery. She has noted increasing lower pelvic pain and low back pain. She states it does not seem to be midline. She does not think it seems to be in the bone it seems more intra-abdominal. She denies fevers or chills. Nothing seems to make it better or worse other than pain medication. She denies dysuria urgency or frequency. Patient denies any fevers or chills. She has had some nausea but no vomiting. No chest pain denies any new shortness of breath. Patient has had prior mastectomy, she has had history of radiation but not recently, had a fulvestrant injection her most recent visit. Patient has also had hysterectomy and oophorectomy, mastectomy as well as foot surgery for prior fracture. Denies any drug allergies. No tobacco, 2 or 3 glasses of wine nightly, no recreational drugs. Lives on [facility]. Follows with Oncology with Rommel Caceres. Dr[place] her primary care physician. She received a narcotic pain medication EN route with EMS she found very helpful. Related Data Home Medications ?Medication ?Instructions ?Recorded ?Confirmed fulvestrant 125 mg/2.5 mL 500 mg IM QMONTH 04/14/24 06/30/25 intramuscular syringe diphenoxylate-atropine 2.5 tab PO PRN 01/04/25 06/30/25 mg-0.025 mg tablet Previous Rx's ?Medication ?Instructions ?Recorded rosuvastatin 40 mg tablet 40 mg PO DAILY #90 tabs 08/23/24 diclofenac sodium 1 % topical gel 4 g topical QID left knee pain 01/04/25 (Voltaren Arthritis Pain) #100 grams nitrofurantoin 100 mg PO DAILY PRN intercourse 01/25/25 monohydrate/macrocrystals 100 mg #30 caps capsule (Macrobid) duloxetine 60 mg capsule,delayed 60 mg PO DAILY #90 caps 03/22/25 release ezetimibe 10 mg tablet (Zetia) 10 mg PO DAILY #90 tabs 04/19/25 oxycodone 5 mg tablet 5 mg PO QID PRN pain #14 tabs 07/01/25 Allergies Allergy/AdvReac Type Severity Reaction Status Date / Time No Known Drug Allergies Allergy Verified 06/30/25 18:25 Review of Systems Review of Systems ROS Unobtainable: All systems reviewed & are unremarkable except as noted in HPI and below Patient History Social History Smoking Status: Never smoker Smoking Status: Never smoker Exam Narrative Exam Narrative: GENERAL: Alert and oriented x three, thin female in mild distress HEENT: Head normocephalic, atraumatic, EOMI, pupils reactive, face symmetric, moist mucous membranes NECK: Supple, full range of motion CARDIOVASCULAR: Regular rate and rhythm without murmurs, rubs or gallops. RESPIRATORY: Breath sounds equal bilaterally, no wheezes rales or rhonchi. ABDOMEN: Soft, nontender. Nondistended. Normoactive bowel sounds all 4 quadrants. No guarding or rebound, rigidity, no mass : No CVA tenderness EXTREMITIES: Normal range of motion, no clubbing or edema. Neurovascularly intact NEUROLOGICAL: Cranial nerves II through XII grossly intact. Moving all extremities SKIN: Warm, dry, no petechiae, no rashes or lesions. Initial Vital Signs Initial Vital Signs: Vital Signs Pulse Rate 76 06/30/25 18:22 Pulse Oximetry 97 06/30/25 18:22 Course Orders Ordered: ED Orders 06/30/25 21:57 CT abdomen pelvis w con Stat 07/01/25 01:30 Urine Microscopic Stat Discontinued Medications Hydrocodone Bitart/Acetaminophen (Hydrocodone/Acet 5/325 Tablet) 2 tab PO NOW ONE Stop: 07/01/25 01:11 Last Admin: 07/01/25 01:58 Dose: 2 tab Documented By: CHAPIN Hydromorphone HCl (Hydromorphone Hcl 0.5 Mg/0.5 Ml Syringe) 0.5 mg IV NOW ONE Stop: 06/30/25 20:01 Last Admin: 06/30/25 20:06 Dose: 0.5 mg Documented By: Sodium Chloride (Normal Saline 0.9%) 1,000 mls @ 1,000 mls/hr IV BOLUS ONE Stop: 06/30/25 22:55 Last Infusion: 07/01/25 01:00 Dose: Infused Documented By: Admin: 06/30/25 22:32 Dose: 1,000 mls/hr Documented By: JORDAN Tranexamic Acid 1,000 mg/ (Sodium Chloride) 100 mls @ 200 mls/hr IV NOW ONE Stop: 06/30/25 23:53 Last Admin: 06/30/25 23:43 Dose: Not Given Documented By: CHAPIN Morphine Sulfate (Morphine 4 Mg/Ml Inj) 4 mg IV NOW ONE Stop: 06/30/25 18:41 Last Admin: 06/30/25 18:57 Dose: 4 mg Documented By: Vital Signs Vital signs: Vital Signs - 8 hr 06/30/25 22:30 06/30/25 23:00 06/30/25 23:30 Pulse Rate 75 73 72 Respiratory Rate 18 17 18 Pulse Oximetry 96 95 94 07/01/25 00:00 07/01/25 00:30 07/01/25 01:00 Pulse Rate 70 71 70 Respiratory Rate 21 18 20 Pulse Oximetry 96 98 97 Medical Decision Making Lab Data 06/30/25 18:30 06/30/25 18:30 Labs: Lab Results 06/30/25 07/01/25 Range/Units 18:30 01:30 WBC 6.5 (4.5-11.0) X10^3/uL RBC 2.94 L (4.0-5.2) X10^6/uL Hgb 9.3 L (12.0-16.0) g/dL Hct 27.3 L (36-46) % MCV 92.9 (80-100) fL MCH 31.6 (26-34) PG MCHC 34.0 (30-36) % RDW 15.4 H (11.6-14.8) % Plt Count 145 L (150-400) X10^3/uL Neut % (Auto) 75.0 (50-75) % Lymph % (Auto) 13.3 L (25-40) % Clarke % (Auto) 9.5 (3-14) % Eos % (Auto) 1.9 L (2-4) % Baso % (Auto) 0.3 (0-2) % Neut # (Auto) 4900 (7782-5246) /uL Lymph # (Auto) 900 L (6257-8437) /uL Clarke # (Auto) 600 (0-900) /uL Eos # (Auto) 100 (0-450) /uL Baso # (Auto) 0 (0-100) /uL Sodium 139 (137-145) mmol/L Potassium 3.5 (3.4-5.1) mmol/L Chloride 104 (98-107) mmol/L Carbon Dioxide 25 (22-32) mmol/L BUN 13 (7-17) mg/dL Creatinine 1.03 (0.52-1.04) mg/dL Estimated GFR 55 L (>60) mL/min BUN/Creatinine Ratio 12.6 (6-22) Glucose 106 H (70-99) mg/dL Calcium 9.7 (8.4-10.2) mg/dL Total Bilirubin 0.7 (0.2-1.3) mg/dL AST 116 H (14-36) IU/L ALT 37 H (<35) IU/L Alkaline Phosphatase 102 (38-126) U/L Total Protein 6.5 (6.3-8.2) g/dL Albumin 3.8 (3.5-5.0) g/dL Globulin 2.7 (1.7-4.1) g/dL Albumin/Globulin Ratio 1.4 (1.0-2.8) Lipase 44 (23-300) U/L Urine RBC 0-1/hpf (0-5/HPF) Urine WBC None seen (0-5/HPF) Ur Squamous Epith Cells 0-1 /hpf (0-5/HPF) Urine Bacteria None seen (None) Ur Culture Indicated? Cult not indicated Vol Urine Centrifuged 10ml (spun) Urine Dip Bedside Urine Glucose Negative Bedside Urine Bilirubin - Negative Bedside Urine Ketone - Negative Urine Specific [place] 1.010 Bedside Urine Occult Blood +/- Bedside Urine pH 6.0 Bedside Urine Protein + 30 Bedside Urine Urobilinogen - Negative Bedside Urine Nitrite - Negative Bedside Urine Leukocytes - Negative Esterase Point of care testing: Urine Dip Bedside Urine Glucose Negative Bedside Urine Bilirubin - Negative Bedside Urine Ketone - Negative Urine Specific [place] 1.010 Bedside Urine Occult Blood +/- Bedside Urine pH 6.0 Bedside Urine Protein + 30 Bedside Urine Urobilinogen - Negative Bedside Urine Nitrite - Negative Bedside Urine Leukocytes - Negative Esterase MDM Narrative Medical decision making narrative: Labs normal white count hemoglobin 9.3 patient has been 10-11 in the past year, platelets are 145. Chemistries are appropriate BUN and creatinine normal, AST ALT your we will elevated 116 and 37 total bilirubin is 0.7, lipase is 44. Urine is negative for infection, urine micro shows 1 red cell no white cells, wanes squamous, no bacteria. CT abdomen pelvis colonic wall thickening ascending colon proximal transverse colon isn't distal sigmoid colon rectum with the surrounding inflammation findings concerning for colitis. Severe left hydro and [id number] left hydroureter no obstructing stone or lesion seen. Mildly delayed left nephrogram. Biliary ductal dilation and pancreatic ductal dilation recommend nonemergent pancreatic protocol MRI gallbladder is distended. Multiple low-density lesions in the spleen. Metastasis is not excluded. Trace perihepatic and perisplenic free fluid. Diffuse heterogeneity with osseous structures most consistent with metastatic disease. Patient had pain medication, fluids. She is feeling somewhat improved. Reviewed findings with the patient. Patient she follow up with Urology for cystoscopy reviewed this with her. She states she already has follow up with Gastroenterology for her pancreas. She follows with Rommel Caceres we will give a copy of her CT imaging. [place] stable for discharge and follow up we will also give local urology choice. Discussed with the patient states much improved with the pain medication we will give a short term script for oral pain medication. Discharge Plan Departure Patient Disposition: Home Clinical Impression: Hydronephrosis of left kidney Instructions: DI for Abdominal Pain-Adult Activity Restrictions/Additional Instructions: Your workup today does show some changes consistent with colitis in the ascending and proximal transverse colon, some left hydronephrosis and [id number] left hydroureter there was no obstructing lesion or signs of infection on your urine. You do have some biliary ductal dilation and pancreatic ductal dilation as well as multiple low densities throughout the spleen, some trace perihepatic and perisplenic free fluid and changes in the bones consistent with your metastatic disease. You do need to follow up with Urology for visualization there is a possibility your hydronephrosis could be related to something obstructing and causing swelling of the kidney. You can take narcotic pain medication as prescribed. This medication can make you sleepy do not drive, perform hazardous activities or make any major decisions while taking it. This medication will make you constipated please take a stool softener once to twice daily until stools are soft and regular. Prescription sent Return for fevers, new or worsening abdominal back or flank pain, persistent vomiting, lightheadedness or passing out or other new or concerning changes. Prescriptions: New oxycodone 5 mg tablet 5 mg PO QID PRN (Reason: pain) Qty: 14 0RF No Action rosuvastatin 40 mg tablet 40 mg PO DAILY Qty: 90 3RF nitrofurantoin monohyd/m-cryst [Macrobid] 100 mg capsule 100 mg PO DAILY PRN (Reason: intercourse) Qty: 30 0RF Rx Instructions: take 1 tablet following intercourse as needed To prevent urinary tract infection duloxetine 60 mg capsule,delayed release(DR/EC) 60 mg PO DAILY Qty: 90 3RF ezetimibe [Zetia] 10 mg tablet 10 mg PO DAILY Qty: 90 0RF fulvestrant 125 mg/2.5 syringe 500 mg IM QMONTH Rx Instructions: may divide dose into 2 equally divided injections; one into each buttock diphenoxylate-atropine 2.5-0.025 mg tablet PO PRN Patient Comments: [NO ORIGINAL SIG] diclofenac sodium [Voltaren Arthritis Pain] 1 % gel 4 g topical QID Qty: 100 1RF Rx Instructions: apply to single knee, ankle, foot; for foot includes sole/toes/top of foot Referrals: Jae Sheikh DO [Physician, Urology] Rey Stallings MD [Primary Care Provider, Family Practice] Stand Alone Forms: Patient Portal/API
--- NOTE | 2025-06-30 21:57 | DI.CT.S_ITS ---
PROCEDURE: CT ABDOMEN PELVIS W CON INDICATIONS: pelvic pain, low back pain, breast ca known mets TECHNIQUE: After the administration of intravenous contrast, axial sections acquired from the lung bases to the pubic symphysis. Coronal and sagittal reformats were performed. For radiation dose reduction, the following was used: automated exposure control, adjustment of mA and/or kV according to patient size. COMPARISON: None. FINDINGS: Image quality: Diagnostic. Lower Chest: Mild dependent atelectasis. ABDOMEN: Liver: No solid mass. Gallbladder: Distended. No calcified stones or wall thickening. Biliary ducts: Intra and extrahepatic biliary ductal dilatation. Pancreas: Dilatation of the pancreatic duct measuring up to 6 mm. Spleen: Size is within normal limits. Multiple small low-density lesions throughout the spleen. Adrenal Glands: No adrenal nodules. Kidneys and Ureters: Severe left hydronephrosis with a mildly delayed left nephrogram. [id number] left hydroureter. No obstructing stone is seen. Stomach and Bowel: Significant wall thickening of the rectum and distal sigmoid colon with surrounding inflammation. Diverticulosis is seen without evidence of acute diverticulitis. Additional wall thickening of the ascending colon and proximal transverse colon with surrounding inflammation. Peritoneum: Trace perihepatic and perisplenic free fluid.. No free air. Ventral Wall: No significant ventral hernia. Abdominal Nodes: No retroperitoneal or mesenteric adenopathy by size criteria. Vessels: Aorta and inferior vena cava are normal in size. Atherosclerotic vascular calcifications. PELVIS: Pelvic Organs: Unremarkable. Bladder: No bladder wall thickening, accounting for underdistention. Pelvic Nodes: No enlarged lymph nodes. Miscellaneous: No inguinal hernias are seen. Bones: Diffuse heterogeneity of the osseous structures concerning for metastatic disease. IMPRESSION: 1. Colonic wall thickening involving the ascending colon and proximal transverse colon as well as the distal sigmoid colon and rectum with surrounding inflammation. Findings are concerning for colitis. 2. Severe left hydronephrosis and [id number] left hydroureter. No obstructing stone or lesion is seen. Mildly delayed left nephrogram. 3. Biliary ductal dilatation and pancreatic ductal dilatation. Recommend nonurgent pancreatic protocol MRI to further evaluate. The gallbladder is distended. 4. Multiple low-density lesions throughout the spleen. Metastases is not excluded. 5. Trace perihepatic and perisplenic free fluid. 6. Diffuse heterogeneity throughout the osseous structures, most consistent with metastatic disease. 7. Please see above for additional findings. Dictated by: Charly Nayak M.D. on 06/30/2025 at 22:34 Approved by: Charly Nayak M.D. on 06/30/2025 at 22:42
[2025-06-30 22:05] LABS: Add Manual Diff / Slide Review NO; Hematocrit 27.3 % (36-46); Hemoglobin 9.3 g/dL (12.0-16.0); Lymphocytes Absolute Auto 900 /uL (1100-4500); Mean Corpuscular HGB Conc 34.0 % (30-36); Mean Corpuscular Hemoglobin 31.6 PG (26-34); Mean Corpuscular Volume 92.9 fL (80-100); Platelet Count 145 X10^3/uL (150-400)
[2025-06-30 22:11] LABS: Alanine Aminotransferase 37 IU/L (<35); Albumin 3.8 g/dL (3.5-5.0); Albumin Globulin Ratio 1.4 (1.0-2.8); Alkaline Phosphatase 102 U/L (38-126); Blood Urea Nitrogen 13 mg/dL (7-17); Calcium 9.7 mg/dL (8.4-10.2); Carbon Dioxide 25 mmol/L (22-32); Chloride 104 mmol/L (98-107); Estimated Glomerular Filt Rate 55 mL/min (>60); Globulin 2.7 g/dL (1.7-4.1); Glucose 106 mg/dL (70-99); HEMOLYSIS < 15 (0-50); Lipase 44 U/L (23-300); Potassium 3.5 mmol/L (3.4-5.1); Sodium 139 mmol/L (137-145); Total Protein 6.5 g/dL (6.3-8.2)
[2025-06-30] MEDS: SODIUM CHLORIDE 0.9% 1,000 ML 1000 ML IV (22:32)
--- NOTE | 2025-06-30 22:59 | PC.NURSE ---
iv placed by another nurse
[2025-07-01] VITALS: PULSE 70; RESP 21; O2SAT 96
[2025-07-01 00:30] VITALS: PULSE 71; RESP 18; O2SAT 98
[2025-07-01 01:00] VITALS: PULSE 70; RESP 20; O2SAT 97
[2025-07-01 02:11] LABS: Culture Indicated Urine Cult Not Indicated
--- NOTE | 2025-07-01 04:00 | PC.NURSE ---
pt resting quietly with eyes closed resp even and unlabored, waiting for ferry to start running to be dc
== END 2025-07-01 06:21 | disposition home or self-care (01) ==
PROVIDERS: Emergency Provider Emergency Medicine; PCP Family Medicine
DX: N13.30 Unspecified hydronephrosis (principal); M54.50 Low back pain, unspecified; C50.919 Malignant neoplasm of unspecified site of unspecified female breast; C79.89 Secondary malignant neoplasm of other specified sites
CPT/HCPCS: 74177; 76705; 80053; 81002; 81003; 81015; 83690; 85025; 96361; 96374; 96375; 99284; J1171; J2272; Q9967

== ENCOUNTER 2025-07-07 14:03 | Inpatient (IN) | payer MEDICARE, OTHER, SELFPAY ==
[2025-07-07] VITALS (18 sets, daily range): BP systolic 121–142; BP diastolic 59–80; PULSE 77–88; RESP 12–27; TEMP 36.6–36.9; O2SAT 93–99; BMI 21.8; BMI 21.9
[2025-07-07 14:54] LABS: Add Manual Diff / Slide Review NO; Hematocrit 27.7 % (36-46); Hemoglobin 9.4 g/dL (12.0-16.0); Lymphocytes Absolute Auto 800 /uL (1100-4500); Mean Corpuscular HGB Conc 33.9 % (30-36); Mean Corpuscular Hemoglobin 30.3 PG (26-34); Mean Corpuscular Volume 89.4 fL (80-100); Platelet Count 162 X10^3/uL (150-400)
[2025-07-07 15:02] LABS: Alanine Aminotransferase 28 IU/L (<35); Albumin 3.9 g/dL (3.5-5.0); Albumin Globulin Ratio 1.3 (1.0-2.8); Alkaline Phosphatase 114 U/L (38-126); Blood Urea Nitrogen 24 mg/dL (7-17); Calcium 9.7 mg/dL (8.4-10.2); Carbon Dioxide 25 mmol/L (22-32); Chloride 95 mmol/L (98-107); Estimated Glomerular Filt Rate 28 mL/min (>60); Globulin 3.1 g/dL (1.7-4.1); Glucose 111 mg/dL (70-99); HEMOLYSIS < 15 (0-50); Lipase 54 U/L (23-300); Potassium 3.7 mmol/L (3.4-5.1); Sodium 131 mmol/L (137-145); Total Protein 7.0 g/dL (6.3-8.2)
--- NOTE | 2025-07-07 15:49 | ED_ITS ---
HPI - Abdominal Pain General Chief Complaint: Abdominal Pain Stated Complaint: Bowel Blockage sent from PCP, Cancer patient Time Seen by Provider: 07/07/25 14:23 History of Present Illness HPI narrative: Patient is sent here for primary care for concerns of bowel obstruction. Patient has history of breast cancer followed by [facility] in [place]. Patient was seen here a couple days ago had CT imaging done no bowel obstruction seen. Patient again was seen at [facility] yesterday emergency department in sent home again. Patient has not had a bowel movement in 7 days. No prior history of bowel obstruction. Had nausea. Pain is mostly left side. Patient seen by primary care [address] imaging done. Patient seen here 6 days ago for hydronephrosis. Patient seen by primary care 7 days ago for abdominal pain as well. Related Data Home Medications ?Medication ?Instructions ?Recorded ?Confirmed lidocaine-prilocaine 2.5 %-2.5 % 1 applic topical PRN PRN port 07/07/25 07/11/25 topical cream access Previous Rx's ?Medication ?Instructions ?Recorded rosuvastatin 40 mg tablet 40 mg PO DAILY #90 tabs 07/27 07/19 nitrofurantoin 100 mg PO DAILY PRN interco urse 01/25/25 monohydrate/macrocrystals 100 mg #30 caps capsule (Macrobid) duloxetine 60 mg capsule,delayed 60 mg PO DAILY #90 ca ps 03/22/25 release ondansetron 4 mg disintegrating See Rx Instructions PO Q8H PRN 07/05/25 tablet nausea and vomiting #60 tabs naloxegol 12.5 mg tablet (Movantik) 12.5 mg PO QAM #30 tabs 07/10/25 polyethylene glycol 3350 17 gram 17 gm PO DAILY #30 ea 07/10/25 oral powder packet (Gavilax) ezetimibe 10 mg tablet (Zetia) 10 mg PO DAILY #90 tabs 07/19/25 Allergies Allergy/AdvReac Type Severity Reaction Status Date / Time No Known Drug Allergies Allergy Verified 07/05/25 15:53 Review of Systems Review of Systems Narrative: GENERAL: Negative chills, positive fatigue, malaise, negative fever, sweats. Decreased appetite HEENT: Negative sinus pain, ear pain, sore throat RESPIRATORY: Negative dyspnea, cough CARDIOVASCULAR: Negative chest pain, palpitations GASTROINTESTINAL: Negative vomiting, nausea, positive abdominal pain : Negative dysuria, frequency, hematuria, decreased urination MUSCULOSKELETAL: Negative muscle or bony pain SKIN: Negative rash, skin lesions NEUROLOGIC: Negative weakness, numbness ROS Unobtainable: All systems reviewed & are unremarkable except as noted in HPI and below Patient History Social History household members: spouse alcohol intake: current Exam Narrative Exam Narrative: GENERAL: in no distress, not toxic not dyspneic HEAD: Normocephalic. EYES: Pupils equal round ENT: Mucous membranes slightly dry NECK: Trachea midline. CARDIOVASCULAR: Regular rate and rhythm RESPIRATORY: Clear to auscultation. Breath sounds equal bilaterally. No wheezes, rales, or rhonchi. GASTROINTESTINAL: Abdomen soft, mild left lower quadrant tenderness. No peritoneal signs no guarding or rebound. No CVA tenderness. EXTREMITIES: No gross deformities. BACK: No flank tenderness. NEURO: AOx4. Clear speech SKIN: Warm and dry PSYCH: Not anxious, is cooperative Initial Vital Signs Initial Vital Signs: Vital Signs Blood Pressure 134/60 07/07/25 14:20 Course Orders Ordered: Discontinued Medications Acetaminophen (Acetaminophen 325 Mg Tablet) 650 mg PO Q6H PRN PRN Reason: Fever/Mild Pain (1-3) Last Admin: 07/09/25 12:01 Dose: 650 mg Documented By: Admin: 07/08/25 19:29 Dose: 650 mg Documented By: Atorvastatin Calcium (Atorvastatin 20 Mg Tablet) 80 mg PO DAILY [facility] Last Admin: 07/10/25 09:01 Dose: Not Given Documented By: Admin: 07/09/25 08:54 Dose: Not Given Documented By: LEONEL Bisacodyl (Bisacodyl 10 Mg Supp) 10 mg MD NOW ONE Stop: 07/10/25 06:22 Last Admin: 07/10/25 06:51 Dose: 10 mg Documented By: ROSAURA(2) Duloxetine HCl (Duloxetine 30 Mg Capsule.Dr) 60 mg PO DAILY [facility] Last Admin: 07/10/25 09:00 Dose: 60 mg Documented By: Admin: 07/09/25 08:51 Dose: 60 mg Documented By: LEONEL Ezetimibe (Ezetimibe 10 Mg Tablet) 10 mg PO DAILY [facility] Last Admin: 07/10/25 09:02 Dose: Not Given Documented By: Admin: 07/09/25 08:55 Dose: Not Given Documented By: LEONEL Enoxaparin Sodium (Enoxaparin 30 Mg/0.3 Ml Syringe) 30 mg SUBCUT DAILY [facility] Last Admin: 07/10/25 09:00 Dose: 30 mg Documented By: Admin: 07/09/25 08:53 Dose: 30 mg Documented By: LEONEL Sodium Chloride (Normal Saline 0.9%) 1,000 mls @ 1,000 mls/hr IV BOLUS ONE Stop: 07/07/25 16:51 Last Infusion: 07/07/25 18:00 Dose: Infused Documented By: Admin: 07/07/25 16:09 Dose: 1,000 mls/hr Documented By: STEVEN Sodium Chloride (Normal Saline 0.9%) 1,000 mls @ 100 mls/hr IV CONT [facility] Last Infusion: 07/09/25 19:00 Dose: Infused Documented By: ROSAURA(2) Admin: 07/09/25 08:50 Dose: 100 mls/hr Documented By: Infusion: 07/09/25 07:00 Dose: Infused Documented By: Admin: 07/08/25 21:00 Dose: 100 mls/hr Documented By: Infusion: 07/08/25 21:00 Dose: Infused Documented By: Admin: 07/08/25 11:24 Dose: 100 mls/hr Documented By: Infusion: 07/08/25 06:11 Dose: Infused Documented By: Infusion: 07/07/25 20:45 Dose: 100 mls/hr Documented By: Admin: 07/07/25 20:11 Dose: 100 mls/hr Documented By: STEVEN Piperacillin Sod/Tazobactam (Sod 3.375 gm/ Sodium Chloride) 100 mls @ 25 mls/hr IV Q8H [facility] Last Admin: 07/10/25 13:29 Dose: Not Given Documented By: Infusion: 07/10/25 09:02 Dose: Infused Documented By: Admin: 07/10/25 04:26 Dose: 25 mls/hr Documented By: ORSAURA(2) Infusion: 07/10/25 01:00 Dose: Infused Documented By: ROSAURA(2) Admin: 07/09/25 20:45 Dose: 25 mls/hr Documented By: ROSAURA(2) Infusion: 07/09/25 18:17 Dose: Infused Documented By: Admin: 07/09/25 14:04 Dose: 25 mls/hr Documented By: Infusion: 07/09/25 09:21 Dose: Infused Documented By: Admin: 07/09/25 05:01 Dose: 25 mls/hr Documented By: Infusion: 07/09/25 01:04 Dose: Infused Documented By: Admin: 07/08/25 20:47 Dose: 25 mls/hr Documented By: Infusion: 07/08/25 18:12 Dose: Infused Documented By: YAJorge Admin: 07/08/25 13:30 Dose: 25 mls/hr Documented By: SHAHNAZ Sodium Chloride (Normal Saline 0.9%) 1,000 mls @ 125 mls/hr IV CONT [facility] Last Admin: 07/10/25 11:19 Dose: 125 mls/hr Documented By: Infusion: 07/10/25 10:45 Dose: Infused Documented By: Admin: 07/10/25 02:45 Dose: 125 mls/hr Documented By: CM(2) Infusion: 07/10/25 02:16 Dose: Infused Documented By: ROSAURA(2) Admin: 07/09/25 18:16 Dose: 125 mls/hr Documented By: Admin: 07/09/25 12:02 Dose: Not Given Documented By: LEONEL POTASSIUM CHLORIDE IN WATER (Potassium Cl 10 Meq/100 Ml Ciara) 10 meq in 100 mls @ 100 mls/hr IV Q1H [facility] Stop: 07/10/25 11:14 Last Infusion: 07/10/25 13:39 Dose: Infused Documented By: Admin: 07/10/25 12:30 Dose: 100 mls/hr Documented By: Infusion: 07/10/25 12:27 Dose: Infused Documented By: Admin: 07/10/25 11:18 Dose: 100 mls/hr Documented By: Infusion: 07/10/25 11:01 Dose: Infused Documented By: Admin: 07/10/25 10:01 Dose: 100 mls/hr Documented By: Infusion: 07/10/25 09:58 Dose: Infused Documented By: Admin: 07/10/25 08:58 Dose: 100 mls/hr Documented By: ROSAURA Lorazepam (Lorazepam 2 Mg/Ml Inj) 1 mg IV Q4HR PRN PRN Reason: Anxiety Last Admin: 07/08/25 20:47 Dose: 1 mg Documented By: Admin: 07/07/25 23:07 Dose: 1 mg Documented By: Magnesium Hydroxide (Magnesium Hydroxide 30 Ml Udc) 30 ml PO DAILY PRN PRN Reason: Constipation Last Admin: 07/09/25 08:51 Dose: 30 ml Documented By: LEONEL Metoclopramide HCl (Metoclopramide 10 Mg/2 Ml Inj) 10 mg IV Q6HR PRN PRN Reason: Nausea And Vomiting Last Admin: 07/07/25 23:07 Dose: 10 mg Documented By: Metoclopramide HCl (Metoclopramide 10 Mg/2 Ml Inj) 5 mg IV Q6HR PRN PRN Reason: Nausea And Vomiting Last Admin: 07/10/25 03:24 Dose: 5 mg Documented By: ROSAURA(2) Admin: 07/09/25 20:44 Dose: 5 mg Documented By: ROSAURA(2) Admin: 07/08/25 20:47 Dose: 5 mg Documented By: Naloxone HCl (Naloxone 0.4 Mg/Ml Vial) 0.2 mg IV Q2MIN PRN PRN Reason: Opiate Reversal Ondansetron HCl (Ondansetron 4 Mg/2 Ml Inj) 4 mg IV NOW PRN PRN Reason: Nausea And Vomiting Ondansetron HCl (Ondansetron 4 Mg Odt) 4 mg PO NOW PRN PRN Reason: Nausea And Vomiting Ondansetron HCl (Ondansetron 4 Mg/2 Ml Inj) 4 mg IV Q8HR PRN PRN Reason: Nausea And Vomiting Last Admin: 07/07/25 21:41 Dose: 4 mg Documented By: Ondansetron HCl (Ondansetron 4 Mg Odt) 4 mg SL Q4HR PRN PRN Reason: Nausea Last Admin: 07/10/25 15:01 Dose: 4 mg Documented By: ROSAURA Polyethylene Glycol (Polyethylene Glycol 3350 17 Gm Powd.Pack) 17 gm PO DAILY [facility] Last Admin: 07/10/25 09:02 Dose: 17 gm Documented By: Admin: 07/09/25 09:20 Dose: 17 gm Documented By: LEONEL Potassium Chloride (Potassium Chloride 20 Meq Tab) 20 meq PO NOW ONE Stop: 07/09/25 13:01 Last Admin: 07/09/25 14:04 Dose: 20 meq Documented By: LEONEL Scopolamine (Scopolamine 1 Patch) 1 patch TOP Q72H [facility] Last Admin: 07/07/25 23:06 Dose: 1 patch Documented By: Sodium Biphosphate/Sodium Phosphate (Fleets Enema) 1 each MD NOW PRN PRN Reason: Constipation Last Admin: 07/10/25 04:16 Dose: 1 each Documented By: ROSAURA(2) Admin: 07/09/25 08:53 Dose: 1 each Documented By: LEONEL Sodium Biphosphate/Sodium Phosphate (Fleets Enema) 1 each MD NOW ONE Stop: 07/09/25 08:49 Last Admin: 07/09/25 18:17 Dose: 1 each Documented By: LEONEL Sodium Chloride (Sodium Chloride 0.9% Flush) 10 ml IV PRN PRN PRN Reason: Flush Sodium Chloride (Sodium Chloride 0.9% Flush) 10 ml IV BID [facility] Last Admin: 07/10/25 09:02 Dose: 10 ml Documented By: Admin: 07/09/25 19:51 Dose: Not Given Documented By: ROSAURA(2) Admin: 07/09/25 08:52 Dose: 10 ml Documented By: Admin: 07/08/25 20:48 Dose: 10 ml Documented By: Admin: 07/08/25 10:44 Dose: Not Given Documented By: SHAHNAZ Sodium Chloride (Sodium Chloride 0.9% Flush) 10 ml IV PRN PRN PRN Reason: Flush Vital Signs Vital signs: Vital Signs - 8 hr 07/07/25 14:20 07/07/25 14:21 07/07/25 14:24 Temperature 98.4 F Pulse Rate 87 88 Respiratory Rate 16 Blood Pressure 134/60 134/60 Pulse Oximetry 98 99 Oxygen Delivery Method Room Air 07/07/25 14:44 07/07/25 14:49 07/07/25 14:49 Temperature Pulse Rate 87 83 Respiratory Rate 15 Blood Pressure 135/60 Pulse Oximetry 94 97 Oxygen Delivery Method 07/07/25 15:00 07/07/25 15:00 07/07/25 15:30 Temperature Pulse Rate 80 Respiratory Rate 13 Blood Pressure 131/64 139/67 Pulse Oximetry 96 Oxygen Delivery Method 07/07/25 15:30 07/07/25 16:09 07/07/25 16:09 Temperature Pulse Rate 80 81 Respiratory Rate 15 21 Blood Pressure 141/65 H Pulse Oximetry 96 93 Oxygen Delivery Method 07/07/25 16:30 07/07/25 16:30 07/07/25 17:33 Temperature Pulse Rate 82 86 Respiratory Rate 15 Blood Pressure 142/66 H Pulse Oximetry 95 Oxygen Delivery Method 07/07/25 17:35 07/07/25 17:35 07/07/25 18:00 Temperature Pulse Rate 82 Respiratory Rate 14 Blood Pressure 131/61 133/62 Pulse Oximetry 95 Oxygen Delivery Method 07/07/25 18:00 07/07/25 18:30 07/07/25 18:30 Temperature Pulse Rate 80 80 Respiratory Rate 17 15 Blood Pressure 142/63 H Pulse Oximetry 95 94 Oxygen Delivery Method Room Air 07/07/25 19:00 07/07/25 19:00 07/07/25 19:30 Temperature Pulse Rate 83 Respiratory Rate 27 H Blood Pressure 128/80 131/59 L Pulse Oximetry 96 Oxygen Delivery Method 07/07/25 19:30 Temperature Pulse Rate 82 Respiratory Rate 18 Blood Pressure Pulse Oximetry 95 Oxygen Delivery Method Room Air MDM - Abdominal Pain Lab Data 07/10/25 08:22 07/10/25 05:23 Labs: Lab Results 07/07/25 07/07/25 07/07/25 Range/Units 14:39 17:30 18:57 WBC 7.9 (4.5-11.0) X10^3/uL RBC 3.10 L (4.0-5.2) X10^6/uL Hgb 9.4 L (12.0-16.0) g/dL Hct 27.7 L (36-46) % MCV 89.4 D (80-100) fL MCH 30.3 (26-34) PG MCHC 33.9 (30-36) % RDW 15.7 H (11.6-14.8) % Plt Count 162 (150-400) X10^3/uL Neut % (Auto) 80.1 H (50-75) % Lymph % (Auto) 9.7 L (25-40) % Mcduffie % (Auto) 9.5 (3-14) % Eos % (Auto) 0.4 L (2-4) % Baso % (Auto) 0.3 (0-2) % Neut # (Auto) 6300 (5329-1494) /uL Lymph # (Auto) 800 L (0740-9739) /uL Mcduffie # (Auto) 700 (0-900) /uL Eos # (Auto) 0 (0-450) /uL Baso # (Auto) 0 (0-100) /uL Sodium 131 L 132 L (137-145) mmol/L Potassium 3.7 3.7 (3.4-5.1) mmol/L Chloride 95 L 98 (98-107) mmol/L Carbon Dioxide 25 24 (22-32) mmol/L BUN 24 H 21 H (7-17) mg/dL Creatinine 1.83 H 1.73 H (0.52-1.04) mg/dL Estimated GFR 28 L 30 L (>60) mL/min BUN/Creatinine Ratio 13.1 12.1 (6-22) Glucose 111 H 101 H (70-99) mg/dL Calcium 9.7 8.9 (8.4-10.2) mg/dL Total Bilirubin 0.9 (0.2-1.3) mg/dL AST 49 H (14-36) IU/L ALT 28 (<35) IU/L Alkaline Phosphatase 114 (38-126) U/L Total Protein 7.0 (6.3-8.2) g/dL Albumin 3.9 (3.5-5.0) g/dL Globulin 3.1 (1.7-4.1) g/dL Albumin/Globulin Ratio 1.3 (1.0-2.8) Lipase 54 (23-300) U/L Urine Color Yellow Urine Appearance Clear Urine pH 6.0 (4.5-8.0) Ur Specific Blanket 1.025 (1.000-1.035) Urine Protein 2+ H (Negative) Urine Glucose (UA) Negative (Negative) g/dL Urine Ketones 1+ H (NEGATIVE) Urine Occult Blood Trace-intact (Negative) Urine Nitrate Negative (Negative) Urine Bilirubin 1+ H (NEGATIVE) Ur Bilirubin Confirm Negative (Negative) Urine Urobilinogen 1.0 (0.2) E.U./dL Ur Leukocyte Esterase Negative (NEGATIVE) Urine RBC None seen (0-5/HPF) Urine WBC 0-1/hpf (0-5/HPF) Ur Squamous Epith Cells 0-1 /hpf (0-5/HPF) Urine Bacteria None seen (None) Granular Casts 0-1/lpf (None) Ur Culture Indicated? Cult not indicated Vol Urine Centrifuged 10ml (spun) 07/08/25 07/09/25 Range/Units 05:50 08:50 WBC 6.8 5.8 (4.5-11.0) X10^3/uL RBC 2.73 L 2.92 L (4.0-5.2) X10^6/uL Hgb 8.4 L 8.8 L (12.0-16.0) g/dL Hct 24.4 L 26.6 L (36-46) % MCV 89.3 91.1 (80-100) fL MCH 30.7 30.1 (26-34) PG MCHC 34.4 33.1 (30-36) % RDW 15.1 H 15.1 H (11.6-14.8) % Plt Count 145 L 155 (150-400) X10^3/uL Neut % (Auto) 80.1 H (50-75) % Lymph % (Auto) 12.0 L (25-40) % Mcduffie % (Auto) 6.9 (3-14) % Eos % (Auto) 0.5 L (2-4) % Baso % (Auto) 0.5 (0-2) % Neut # (Auto) 5400 (3369-1842) /uL Lymph # (Auto) 800 L (4877-9756) /uL Mcduffie # (Auto) 500 (0-900) /uL Eos # (Auto) 0 (0-450) /uL Baso # (Auto) 0 (0-100) /uL Sodium 134 L 138 (137-145) mmol/L Potassium 3.5 3.5 (3.4-5.1) mmol/L Chloride 103 108 H (98-107) mmol/L Carbon Dioxide 24 22 (22-32) mmol/L BUN 20 H 18 H (7-17) mg/dL Creatinine 1.68 H 1.73 H (0.52-1.04) mg/dL Estimated GFR 31 L 30 L (>60) mL/min BUN/Creatinine Ratio 11.9 10.4 (6-22) Glucose 95 103 H (70-99) mg/dL Calcium 9.0 8.4 (8.4-10.2) mg/dL Total Bilirubin 0.6 (0.2-1.3) mg/dL AST 43 H (14-36) IU/L ALT 22 (<35) IU/L Alkaline Phosphatase 90 (38-126) U/L Total Protein 5.9 L (6.3-8.2) g/dL Albumin 3.1 L (3.5-5.0) g/dL Globulin 2.8 (1.7-4.1) g/dL Albumin/Globulin Ratio 1.1 (1.0-2.8) Lipase 80 (23-300) U/L Urine Color Urine Appearance Urine pH (4.5-8.0) Ur Specific Blanket (1.000-1.035) Urine Protein (Negative) Urine Glucose (UA) (Negative) g/dL Urine Ketones (NEGATIVE) Urine Occult Blood (Negative) Urine Nitrate (Negative) Urine Bilirubin (NEGATIVE) Ur Bilirubin Confirm (Negative) Urine Urobilinogen (0.2) E.U./dL Ur Leukocyte Esterase (NEGATIVE) Urine RBC (0-5/HPF) Urine WBC (0-5/HPF) Ur Squamous Epith Cells (0-5/HPF) Urine Bacteria (None) Granular Casts (None) Ur Culture Indicated? Vol Urine Centrifuged Imaging Data CT scan - abdomen/pelvis: Radiologist's Impression: [place] [address] CT Scan Report Signed Patient: Coty Jones MR#: [id number] : 1945 Acct:[id number] Age/Sex: 80 / F Date of Service: 07/07/25 Loc: ED Accession Number: [id number] Procedure: CT abdomen pelvis wo con Ordering Provider: Amari Dodd MD PROCEDURE: CT ABDOMEN PELVIS WO CON INDICATIONS: Abdominal pain TECHNIQUE: CT of the abdomen and pelvis was obtained without intravenous contrast. Coronal and sagittal reformats were performed. For radiation dose reduction, the following was used: automated exposure control, adjustment of mA and/or kV according to patient size. COMPARISON: [facility], CT, CT ABDOMEN PELVIS W CON, 06/30/2025, 22:03. FINDINGS: Image quality: Diagnostic. Lower Chest: Status post right mastectomy. Mild bibasilar atelectasis. ABDOMEN: Liver: No contour-deforming mass. Stable of hepatic cysts. Gallbladder: Similar mild gallbladder distension. No radiopaque gallstones. Biliary ducts: Stable intrahepatic and extrahepatic biliary duct dilatation Pancreas: Pancreatic duct dilatation better seen on the recent prior CT. Spleen: Previously seen low-density lesions in the spleen are not well seen on this noncontrast exam. Adrenal Glands: No adrenal nodules. Kidneys and Ureters: Severe left and moderate right hydronephrosis has not significantly changed. There is increased left perinephric stranding. No contour-deforming mass. Stomach and Bowel: Marked circumferential rectal wall thickening is again seen with perirectal fat stranding multiple diverticula are seen in the colon. Intermediate segment bowel wall thickening is again seen at the hepatic flexure of the colon similar to the prior exam. Small bowel loops are nondilated. Peritoneum: Trace perisplenic free fluid. No free air. Ventral Wall: No significant hernia. Abdominal Nodes: No retroperitoneal or mesenteric adenopathy by size criteria. Vessels: Aorta and inferior vena cava are normal in size. PELVIS: Pelvic Organs: Status post hysterectomy. Bladder: Unremarkable. Pelvic Nodes: No enlarged lymph nodes. Miscellaneous: No inguinal hernias are seen. Bones: Diffusely heterogeneous appearance of the visualized osseous structures suspicious for osseous metastatic disease. IMPRESSION: 1. Severe left hydronephrosis is again seen with increased left perinephric fat stranding when compared to the CT from 06/30/2025. Stable moderate right hydronephrosis. No obstructing calculus is seen. 2. Bowel wall thickening again seen at the hepatic flexure of the colon and within the rectum with surrounding fat stranding that does not appear significantly changed when compared to the recent CT. 3. Stable biliary duct dilatation and pancreatic duct dilatation. Pancreas protocol MRI is again suggested for further evaluation. 4. Heterogeneous appearance of the osseous structures is suspicious for diffuse metastatic disease. No interval pathologic fracture. Approved by: Frederick Stuart M.D. on 07/07/2025 at 16:33 MDM Narrative Medical decision making narrative: Patient is sent here for primary care for concerns of bowel obstruction. Patient has history of breast cancer followed by [facility] in [place]. Patient was seen here a couple days ago had CT imaging done no bowel obstruction seen. Patient again was seen at [facility] yesterday emergency department in sent home again. Patient has not had a bowel movement in 7 days. No prior history of bowel obstruction. Had nausea. Pain is mostly left side. Patient seen by primary care [address] imaging done. Patient seen here 6 days ago for hydronephrosis. Patient seen by primary care 7 days ago for abdominal pain as well. MDM After history and exam, CBC CMP urinalysis CT abdomen pelvis normal saline Zofran Differential considered: Includes but not limited to colitis bowel obstruction neoplasm Medical records reviewed: ER visit here 7 days ago and primary care office [address] Lab Test results independently reviewed as above. Pertinent findings: WBC 7.9 hemoglobin 9.4 sodium 131 potassium 3.7 BUN 24 creatinine 1.83 glucose 111 Imaging studies independently reviewed: CT abdomen pelvis worsening hydronephrosis Consultations: 4:[address] Rushing, [facility]. Who will relay information to patient is cancer team. 5:21 p.m.. I spoke with [facility] urology, Dr. Pathak, there is no urgent urological procedure need to be done at this time. Recommends observation hydration. He did did review patient's medical chart and found that this is not new hydronephrosis and that the cancer team has been following it. He feels this is likely prerenal as patient has not been eating and drinking. 6:43 p.m.. I spoke with [facility] oncologist Dr. Vaughn, patient can be admitted here for IV hydration. He will contact their team for Urology referral next week. He feels this is likely prerenal as patient has not been eating and drinking 7:54 p.m.. Spoke with hospitalist, Dr. Lei, will admit patient Re-evaluations: 7:33 p.m.. Review with patient and results and repeat BMP is improving but would benefit IV hydration overnight. They agree with this plan as they have gone through a lot in the past 7 days. Multiple ER visits and office visits. I spoke with them regarding my discussion with oncology services well and follow up plan next week. Discussion: Appropriate for observation hydration acute renal injury. Diagnosis: Chronic hydronephrosis, acute renal injury Discharge Plan Departure Patient Disposition: Admitted as Observation Clinical Impression: Acute kidney injury Admit Date/Time: 07/09/25 14:34 Admit Provider: Brendan Lei
--- NOTE | 2025-07-07 15:52 | DI.CT.S_ITS ---
PROCEDURE: CT ABDOMEN PELVIS WO CON INDICATIONS: Abdominal pain TECHNIQUE: CT of the abdomen and pelvis was obtained without intravenous contrast. Coronal and sagittal reformats were performed. For radiation dose reduction, the following was used: automated exposure control, adjustment of mA and/or kV according to patient size. COMPARISON: [facility], CT, CT ABDOMEN PELVIS W CON, 06/30/2025, 22:03. FINDINGS: Image quality: Diagnostic. Lower Chest: Status post right mastectomy. Mild bibasilar atelectasis. ABDOMEN: Liver: No contour-deforming mass. Stable of hepatic cysts. Gallbladder: Similar mild gallbladder distension. No radiopaque gallstones. Biliary ducts: Stable intrahepatic and extrahepatic biliary duct dilatation Pancreas: Pancreatic duct dilatation better seen on the recent prior CT. Spleen: Previously seen low-density lesions in the spleen are not well seen on this noncontrast exam. Adrenal Glands: No adrenal nodules. Kidneys and Ureters: Severe left and moderate right hydronephrosis has not significantly changed. There is increased left perinephric stranding. No contour-deforming mass. Stomach and Bowel: Marked circumferential rectal wall thickening is again seen with perirectal fat stranding multiple diverticula are seen in the colon. Intermediate segment bowel wall thickening is again seen at the hepatic flexure of the colon similar to the prior exam. Small bowel loops are nondilated. Peritoneum: Trace perisplenic free fluid. No free air. Ventral Wall: No significant hernia. Abdominal Nodes: No retroperitoneal or mesenteric adenopathy by size criteria. Vessels: Aorta and inferior vena cava are normal in size. PELVIS: Pelvic Organs: Status post hysterectomy. Bladder: Unremarkable. Pelvic Nodes: No enlarged lymph nodes. Miscellaneous: No inguinal hernias are seen. Bones: Diffusely heterogeneous appearance of the visualized osseous structures suspicious for osseous metastatic disease. IMPRESSION: 1. Severe left hydronephrosis is again seen with increased left perinephric fat stranding when compared to the CT from 06/30/2025. Stable moderate right hydronephrosis. No obstructing calculus is seen. 2. Bowel wall thickening again seen at the hepatic flexure of the colon and within the rectum with surrounding fat stranding that does not appear significantly changed when compared to the recent CT. 3. Stable biliary duct dilatation and pancreatic duct dilatation. Pancreas protocol MRI is again suggested for further evaluation. 4. Heterogeneous appearance of the osseous structures is suspicious for diffuse metastatic disease. No interval pathologic fracture. Approved by: Frederick Stuart M.D. on 07/07/2025 at 16:33
[2025-07-07] MEDS: SODIUM CHLORIDE 0.9% 1,000 ML 1000 ML IV (16:09)
[2025-07-07 17:45] LABS: Bilirubin Urine UA 1+ (NEGATIVE); Color Urine UA YELLOW; Glucose Urine UA NEGATIVE (Negative); Ketones Urine UA 1+ (NEGATIVE); Leukocyte Esterase Urine UA NEGATIVE (NEGATIVE); Nitrite Urine UA NEGATIVE (Negative); Occult Blood Urine UA TRACE-INTACT (Negative); Protein Urine UA 2+ (Negative); Specific Gravity Urine UA 1.025 (1.000-1.035); Urobilinogen Urine UA 1.0 E.U./dL (0.2)
[2025-07-07 17:52] LABS: Ictotest Urine Negative (Negative); pH Urine UA 6.0 (4.5-8.0)
[2025-07-07 17:56] LABS: Appearance Urine UA Clear; Culture Indicated Urine Cult Not Indicated
[2025-07-07 19:18] LABS: Blood Urea Nitrogen 21 mg/dL (7-17); Calcium 8.9 mg/dL (8.4-10.2); Carbon Dioxide 24 mmol/L (22-32); Chloride 98 mmol/L (98-107); Estimated Glomerular Filt Rate 30 mL/min (>60); Glucose 101 mg/dL (70-99); HEMOLYSIS < 15 (0-50); Potassium 3.7 mmol/L (3.4-5.1); Sodium 132 mmol/L (137-145)
[2025-07-07] MEDS: SODIUM CHLORIDE 0.9% 1,000 ML 100 ML IV (20:11)
[2025-07-07] MEDS: ONDANSETRON 4 MG/2 ML INJ IV (21:41)
[2025-07-07] MEDS: SCOPOLAMINE 1 PATCH TOP (23:06)
[2025-07-07] MEDS: METOCLOPRAMIDE 10 MG/2 ML INJ IV (23:07)
--- NOTE | 2025-07-08 04:29 | PM.HP.1 ---
History of Present Illness History of Present Illness Date Patient Seen: 07/07/25 Time Patient Seen: 22:02 Chief complaint: Bowel Blockage sent from PCP, Cancer patient Narrative: 80-year-old female with past medical history of metastatic breast cancer currently being followed by [facility] in [place] and on chemotherapy, hyperlipidemia, depression presents with abdominal pain. Of note the patient was here 3 times over the last 6 to 7 days for similar complaints.. The patient did have CT abdomen with contrast without any acute finding and was sent home. The patient was seen at [facility] emergency department this week and was sent home after negative workup. The only finding over the last week was hydronephrosis bilaterally with left greater than right. However there is no obstructing calculus seen. The patient admitted to have some nausea but denies any vomiting, diarrhea, fever, chills, dysuria, chest pain or coughing. In the emergency room, the patient was hemodynamically stable. Labs were relatively benign except for creatinine 1.8. Of note patient's creatinine on June [address] of the abdomen and pelvis without contrast still shows severe left hydronephrosis and moderate right hydronephrosis without any change from the CT done about a week ago. ER physician did consult the patient's oncologist as well as urologist who recommended to admit the patient here for IV fluid as this is most likely due to prerenal. The patient was given 1 L of IV fluid and request for admission. [facility] Social History household members: spouse Smoking Status: Former smoker alcohol intake: current Meds Home Medications and Allergies Home Medications ?Medication ?Instructions ?Recorded ?Confirmed ?Type rosuvastatin 40 mg tablet 40 mg PO DAILY #90 tabs 08/23/24 07/07/25 Rx nitrofurantoin 100 mg PO DAILY PRN intercourse 01/25/25 07/07/25 Rx monohydrate/macrocrystals 100 mg #30 caps capsule (Macrobid) duloxetine 60 mg capsule,delayed 60 mg PO DAILY #90 caps 03/22/25 07/07/25 Rx release ezetimibe 10 mg tablet (Zetia) 10 mg PO DAILY #90 tabs 04/19/25 07/07/25 Rx ondansetron 4 mg disintegrating See Rx Instructions PO Q8H PRN 07/05/25 07/07/25 Rx tablet nausea and vomiting #60 tabs Held on 07/07/25. Instructions: for constipation lidocaine-prilocaine 2.5 %-2.5 % 1 applic topical PRN PRN port 07/07/25 07/07/25 History topical cream access Allergies Allergy/AdvReac Type Severity Reaction Status Date / Time No Known Drug Allergies Allergy Verified 07/05/25 15:53 Exam Vital Signs (past 8 hours): - 07/07/25 20:30 07/07/25 20:30 07/07/25 21:00 Temperature 97.8 F Pulse Rate 80 77 Respiratory Rate 18 20 Blood Pressure 121/60 136/66 Pulse Oximetry 94 99 Oxygen Flow Rate 0 Oxygen Delivery Method Room Air Oxygen Flow Rate 0 Narrative Exam Narrative: Physical Exam: GENERAL: The patient is not in any acute distressed. Awake and alert. HEENT: Nonicteric sclerae, PERRLA, EOMI. Oropharynx clear. Moist mucous membranes. Conjunctivae appear well perfused. HEART: Regular rate and rhythm without murmurs. No lower extremities edema. LUNGS: Clear to auscultation bilaterally. No wheezing, crackles or rhonchi ABDOMEN: Soft, positive bowel sounds, nontender. SKIN: No rash, no excessive bruising, petechiae, or purpura. NEUROLOGIC: AxO x 3. Cranial nerves II-XII intact without motor/sensory deficit. Objective Labs 07/07/25 14:39 07/07/25 18:57 Labs: Laboratory Results - last 24 hr 07/07/25 07/07/25 07/07/25 14:39 17:30 18:57 WBC 7.9 RBC 3.10 L Hgb 9.4 L Hct 27.7 L MCV 89.4 D MCH 30.3 MCHC 33.9 RDW 15.7 H Plt Count 162 Neut % (Auto) 80.1 H Lymph % (Auto) 9.7 L [place] % (Auto) 9.5 Eos % (Auto) 0.4 L Baso % (Auto) 0.3 Neut # (Auto) 6300 Lymph # (Auto) 800 L [place] # (Auto) 700 Eos # (Auto) 0 Baso # (Auto) 0 Sodium 131 L 132 L Potassium 3.7 3.7 Chloride 95 L 98 Carbon Dioxide 25 24 BUN 24 H 21 H Creatinine 1.83 H 1.73 H Estimated GFR 28 L 30 L BUN/Creatinine Ratio 13.1 12.1 Glucose 111 H 101 H Calcium 9.7 8.9 Total Bilirubin 0.9 AST 49 H ALT 28 Alkaline Phosphatase 114 Total Protein 7.0 Albumin 3.9 Globulin 3.1 Albumin/Globulin Ratio 1.3 Lipase 54 Urine Color Yellow Urine Appearance Clear Urine pH 6.0 Ur Specific [place] 1.025 Urine Protein 2+ H Urine Glucose (UA) Negative Urine Ketones 1+ H Urine Occult Blood Trace-intact Urine Nitrate Negative Urine Bilirubin 1+ H Ur Bilirubin Confirm Negative Urine Urobilinogen 1.0 Ur Leukocyte Esterase Negative Urine RBC None seen Urine WBC 0-1/hpf Ur Squamous Epith Cells 0-1 /hpf Urine Bacteria None seen Granular Casts 0-1/lpf Ur Culture Indicated? Cult not indicated Vol Urine Centrifuged 10ml (spun) Assessment & Plan Assessment & Plan narrative: MAYA. Admit the patient to medical observation. Of note patient baseline creatinine on June 30, 2025 was 1.0. Creatinine today is 1.8. Patient is still makes good urine output. Will continue IV fluid as it is likely prerenal. As stated above both the patient's oncologist and urologist states that the patient can be managed here with IV fluid. CT scan repeated today shows no acute changes from the one done on June 30, 2025. There is still bilateral hydronephrosis with left greater than right. The patient's renal function does not improve the fluid consider consulting urology again and possible transfer. Hyperlipidemia. Resume home statin. Depression. Resume home antidepressant. Known metastatic breast cancer with ongoing abdominal pain. Patient will need to follow-up as outpatient with oncology. Pain control. DVT prophylaxis SCDs due to observational status. CODE STATUS full code. Disposition likely home in 1 to 2 days - As the provider of this telehealth evaluation, requested by the patient's evaluating physician, I attest that I introduced myself to the patient, provided my credentials and determined that telemedicine via a real-time, 2 way interactive audio and video platform is an appropriate and effective means of providing this service. - I reviewed the patient's chart and had a discussion with the member of the patient's treatment team. - The patient and I mutually agreed with continuation of this evaluation via telemedicine. The patient consented for the telemedicine evaluation. - This virtual encounter was taken place from [place] by Dr. Brendan Lei. The patient was evaluated at [facility]. The encounter was approximately 35 minutes. The nurse was present during the entire time of the encounter and was able assists with the stethoscope to listen to the patients. Time-Based Coding :: [TOTAL MINUTES] spent with patient and on the chart (including review of chart, obtaining history, exam, reviewing outside data, placing orders, documenting exam and treatment plan, and counseling patient) on [DATE]. Quality VTE Deep Vein Thrombosis/Pulmonary Embolism Present on Admission: No
[2025-07-08 06:07] LABS: Add Manual Diff / Slide Review NO; Hematocrit 24.4 % (36-46); Hemoglobin 8.4 g/dL (12.0-16.0); Lymphocytes Absolute Auto 800 /uL (1100-4500); Mean Corpuscular HGB Conc 34.4 % (30-36); Mean Corpuscular Hemoglobin 30.7 PG (26-34); Mean Corpuscular Volume 89.3 fL (80-100); Platelet Count 145 X10^3/uL (150-400)
[2025-07-08 06:22] LABS: Blood Urea Nitrogen 20 mg/dL (7-17); Calcium 9.0 mg/dL (8.4-10.2); Carbon Dioxide 24 mmol/L (22-32); Chloride 103 mmol/L (98-107); Estimated Glomerular Filt Rate 31 mL/min (>60); Glucose 95 mg/dL (70-99); HEMOLYSIS < 15 (0-50); Potassium 3.5 mmol/L (3.4-5.1); Sodium 134 mmol/L (137-145)
--- NOTE | 2025-07-08 07:32 | P.PN_ITS ---
Subjective Subjective Date Patient Seen: 07/08/25 Interval history: 80-year-old female with past medical history of metastatic breast cancer currently being followed by [facility] in [place] and on chemotherapy, hyperlipidemia, depression presents with abdominal pain. Of note the patient was here 3 times over the last 6 to 7 days for similar complaints.. The patient did have CT abdomen with contrast without any acute finding and was sent home. The patient was seen at [facility] emergency department this week and was sent home after negative workup. The only finding over the last week was hydronephrosis bilaterally with left greater than right. However there is no obstructing calculus seen. The patient admitted to have some nausea but denies any vomiting, diarrhea, fever, chills, dysuria, chest pain or coughing. In the emergency room, the patient was hemodynamically stable. Labs were relatively benign except for creatinine 1.8. Of note patient's creatinine on June [address] of the abdomen and pelvis without contrast still shows severe left hydronephrosis and moderate right hydronephrosis without any change from the CT done about a week ago. ER physician did consult the patient's oncologist as well as urologist who recommended to admit the patient here for IV fluid as this is most likely due to prerenal. The patient was given 1 L of IV fluid and request for admission. 07/08: Early this morning she announced that [place] ferry [place]. I discussed with her and her that the hemoglobin dropped from 9.4 down to 8.4 and the creatinine did not move much, dropping from 1.73 down to 1.68 with IV fluid overnight. I reviewed the CT scans which showed areas of colitis and hydronephrosis. I also reviewed the recent ED visits and PCP visit notes. I discussed her with the surgeon on-call who reviewed her extensive records and consulted on her. She has multiple active issues, most of them not acute but we are unable to document that her hemoglobin has been this low before. She was discussed with Oncology and Urology from the ED who anticipated that her kidney function would improve with the IV fluid she received overnight. That will need to be extended. Apparently the hydronephrosis is not new. Previous records regarding the hydronephrosis, from [place], were reviewed during yesterday's discussions. Meds Home Medications and Allergies Home Medications ?Medication ?Instructions ?Recorded ?Confirmed ?Type rosuvastatin 40 mg tablet 40 mg PO DAILY #90 tabs 08/23/24 5 Rx nitrofurantoin 100 mg PO DAILY PRN intercourse 5 07/07/25 Rx monohydrate/macrocrystals 100 mg #30 caps capsule (Macrobid) duloxetine 60 mg capsule,delayed 60 mg PO DAILY #90 caps 03/22/25 5 Rx release ezetimibe 10 mg tablet (Zetia) 10 mg PO DAILY #90 tabs 04/19/25 5 Rx ondansetron 4 mg disintegrating See Rx Instructions PO Q8H PRN 07/05/25 07/07/25 Rx tablet nausea and vomiting #60 tabs Held on 07/07/25. Instructions: for constipation lidocaine-prilocaine 2.5 %-2.5 % 1 applic topical PRN PRN port 07/07/25 0 07/07/25 History topical cream access Labs: Laboratory Results - last 24 hr 07/07/25 07/07/25 07/07/25 14:39 17:30 18:57 WBC 7.9 RBC 3.10 L Hgb 9.4 L Hct 27.7 L MCV 89.4 D MCH 30.3 MCHC 33.9 RDW 15.7 H Plt Count 162 Neut % (Auto) 80.1 H Lymph % (Auto) 9.7 L [place] % (Auto) 9.5 Eos % (Auto) 0.4 L Baso % (Auto) 0.3 Neut # (Auto) 6300 Lymph # (Auto) 800 L [place] # (Auto) 700 Eos # (Auto) 0 Baso # (Auto) 0 Sodium 131 L 132 L Potassium 3.7 3.7 Chloride 95 L 98 Carbon Dioxide 25 24 BUN 24 H 21 H Creatinine 1.83 H 1.73 H Estimated GFR 28 L 30 L BUN/Creatinine Ratio 13.1 12.1 Glucose 111 H 101 H Calcium 9.7 8.9 Total Bilirubin 0.9 AST 49 H ALT 28 Alkaline Phosphatase 114 Total Protein 7.0 Albumin 3.9 Globulin 3.1 Albumin/Globulin Ratio 1.3 Lipase 54 Urine Color Yellow Urine Appearance Clear Urine pH 6.0 Ur Specific [place] 1.025 Urine Protein 2+ H Urine Glucose (UA) Negative Urine Ketones 1+ H Urine Occult Blood Trace-intact Urine Nitrate Negative Urine Bilirubin 1+ H Ur Bilirubin Confirm Negative Urine Urobilinogen 1.0 Ur Leukocyte Esterase Negative Urine RBC None seen Urine WBC 0-1/hpf Ur Squamous Epith Cells 0-1 /hpf Urine Bacteria None seen Granular Casts 0-1/lpf Ur Culture Indicated? Cult not indicated Vol Urine Centrifuged 10ml (spun) Assessment & Plan MAYA. Bilateral Hydronephrosis * Baseline creatinine on June 30, 2025 was 1.0. Creatinine today is 1.68. She has good urine output. * Continue IV fluid as it is likely prerenal. As stated above both the patient's oncologist and urologist states that the patient can be managed here with IV fluid. * CT scan shows no acute changes from the one done on June 30, 2025. There is still bilateral hydronephrosis with left greater than right. If the patient's renal function does not continue to improve consider consulting urology again and possible transfer. Colitis * Consult General surgery * IV Zosyn Normocytic Anemia * Hgb dropped from 9.4 to 8.4 * Follow Hyperlipidemia. Resumed home statin. Crestor and Zetia. Depression. Resumed home antidepressant. Duloxetine. Known metastatic to bone breast cancer with ongoing abdominal pain. Patient will need to follow-up as outpatient with oncology. Pain control. DVT prophylaxis Enoxaparin CODE STATUS full code. Disposition likely home in 1 to 2 days Exam Vital Signs (past 8 hours): Oxygen Delivery Method Room Air Oxygen Flow Rate 0 Narrative Exam Narrative: She appears quite sedated. No apparent distress. Heart is regular rate and rhythm without murmur. Lungs are clear to auscultation bilaterally. Extremities have no ankle edema. Abdomen appears somewhat distended, nontender, no organomegaly, bowel sounds active. Her wrists have bilateral ulnar deviation present. Objective Labs 07/08/25 05:50 07/08/25 05:50 Labs: Laboratory Results - last 24 hr 07/07/25 07/07/25 07/07/25 14:39 17:30 18:57 WBC 7.9 RBC 3.10 L Hgb 9.4 L Hct 27.7 L MCV 89.4 D MCH 30.3 MCHC 33.9 RDW 15.7 H Plt Count 162 Neut % (Auto) 80.1 H Lymph % (Auto) 9.7 L [place] % (Auto) 9.5 Eos % (Auto) 0.4 L Baso % (Auto) 0.3 Neut # (Auto) 6300 Lymph # (Auto) 800 L [place] # (Auto) 700 Eos # (Auto) 0 Baso # (Auto) 0 Sodium 131 L 132 L Potassium 3.7 3.7 Chloride 95 L 98 Carbon Dioxide 25 24 BUN 24 H 21 H Creatinine 1.83 H 1.73 H Estimated GFR 28 L 30 L BUN/Creatinine Ratio 13.1 12.1 Glucose 111 H 101 H Calcium 9.7 8.9 Total Bilirubin 0.9 AST 49 H ALT 28 Alkaline Phosphatase 114 Total Protein 7.0 Albumin 3.9 Globulin 3.1 Albumin/Globulin Ratio 1.3 Lipase 54 Urine Color Yellow Urine Appearance Clear Urine pH 6.0 Ur Specific [place] 1.025 Urine Protein 2+ H Urine Glucose (UA) Negative Urine Ketones 1+ H Urine Occult Blood Trace-intact Urine Nitrate Negative Urine Bilirubin 1+ H Ur Bilirubin Confirm Negative Urine Urobilinogen 1.0 Ur Leukocyte Esterase Negative Urine RBC None seen Urine WBC 0-1/hpf Ur Squamous Epith Cells 0-1 /hpf Urine Bacteria None seen Granular Casts 0-1/lpf Ur Culture Indicated? Cult not indicated Vol Urine Centrifuged 10ml (spun) 07/08/25 05:50 WBC 6.8 RBC 2.73 L Hgb 8.4 L Hct 24.4 L MCV 89.3 MCH 30.7 MCHC 34.4 RDW 15.1 H Plt Count 145 L Neut % (Auto) 80.1 H Lymph % (Auto) 12.0 L [place] % (Auto) 6.9 Eos % (Auto) 0.5 L Baso % (Auto) 0.5 Neut # (Auto) 5400 Lymph # (Auto) 800 L [place] # (Auto) 500 Eos # (Auto) 0 Baso # (Auto) 0 Sodium 134 L Potassium 3.5 Chloride 103 Carbon Dioxide 24 BUN 20 H Creatinine 1.68 H Estimated GFR 31 L BUN/Creatinine Ratio 11.9 Glucose 95 Calcium 9.0 Total Bilirubin AST ALT Alkaline Phosphatase Total Protein Albumin Globulin Albumin/Globulin Ratio Lipase Urine Color Urine Appearance Urine pH Ur Specific [place] Urine Protein Urine Glucose (UA) Urine Ketones Urine Occult Blood Urine Nitrate Urine Bilirubin Ur Bilirubin Confirm Urine Urobilinogen Ur Leukocyte Esterase Urine RBC Urine WBC Ur Squamous Epith Cells Urine Bacteria Granular Casts Ur Culture Indicated? Vol Urine Centrifuged PFSH Social History household members: spouse Smoking Status: Former smoker alcohol intake: current Assessment & Plan Time-Based Coding :: [TOTAL MINUTES] spent with patient and on the chart (including review of chart, obtaining history, exam, reviewing outside data, placing orders, documenting exam and treatment plan, and counseling patient) on [DATE]. Quality VTE Deep Vein Thrombosis/Pulmonary Embolism Present on Admission: No
[2025-07-08] MEDS: SODIUM CHLORIDE 0.9% 1,000 ML 100 ML IV ×2 (11:24→21:00)
--- NOTE | 2025-07-08 12:31 | DI.MRI.S_ITS ---
PROCEDURE: MR ABDOMEN WO/W CON INDICATIONS: Hepatic duct dilation common bile duct dilation history of c TECHNIQUE: Coronal HASTE, axial 2D FLASH in- and [id number]; axial breath-hold T2 FSE. Dynamic axial VIBE during the administration of contrast; post-contrast coronal VIBE or 2D FLASH with fat saturation from the hepatic dome to the iliac crests. Optional diffusion weighted imaging and ADC may be performed. 20 cc ProHance IV contrast. COMPARISON: [facility], CT, CT ABDOMEN PELVIS WO CON, 07/07/2025, 16:00. [facility], CT, CT ABDOMEN PELVIS W CON, 06/30/2025, 22:03. FINDINGS: Image quality: Diagnostic. Some sequences degraded by motion artifact. Lung bases: Mild dependent atelectasis. Liver: Prominent size. A few T2 hyperintense benign cysts. Some of which are too small to further characterize. No enhancing mass identified. Gallbladder: No gallstones or wall thickening. Elongated appearance. Biliary ducts: Mild intrahepatic biliary ductal dilatation. The common hepatic duct is dilated measuring 1.1 cm. The CBD is within normal limits. No choledocholithiasis demonstrated. Pancreas: Pancreatic ductal dilatation. Measures 0.9 cm at the neck. Spleen: Size is within normal limits. Adrenal Glands: No adrenal nodules. Kidneys and Ureters: Severe left hydronephrosis. The proximal left ureter is dilated. Left perinephric stranding. Moderate right hydronephrosis. Findings are not significantly changed. No solid renal mass. Stomach and Bowel: Persistent thickening of the colon at the hepatic flexure, (3/13). Small bowel is not dilated. Stomach is not distended. Peritoneum: Trace ascites. Ventral Wall: Tiny fat containing umbilical hernia. Abdominal Nodes: No retroperitoneal or mesenteric adenopathy by size criteria. Vessels: Aorta and inferior vena cava are normal in size. Portal vein is patent. Bones: Diffuse heterogeneous appearance. IMPRESSION: 1. Intrahepatic biliary ductal dilatation. Common hepatic duct is dilated. No choledocholithiasis demonstrated. 2. Pancreatic ductal dilatation. No mass or cystic lesion identified. 3. Severe left hydronephrosis. Proximal left ureter is dilated. Moderate right hydronephrosis. 4. Persistent thickening at the hepatic flexure colon. Favor infectious/inflammatory colitis. 5. Trace ascites. 6. Diffusely heterogeneous appearance of the bones. Concern for metastatic disease. Dictated by: Miky Suarez M.D. on 07/08/2025 at 19:38 Approved by: Miky Suarez M.D. on 07/08/2025 at 19:59
--- NOTE | 2025-07-08 12:37 | PM.HP.IH.1 ---
History of Present Illness History of Present Illness Date Patient Seen: 07/08/25 Time Patient Seen: 12:30 Date of Onset of Symptoms: 06/24/25 Chief complaint: Bowel Blockage sent from PCP, Cancer patient Narrative: Patient was admitted through the emergency room with left-sided abdominal pain which has been going on for approximately 2 weeks. Patient states it has gotten worse she has not had a bowel movement in 10-11 days. She has been to the ER here x3 [facility] x1 bend to her family doctor twice in 7 days. She denies any melena but no bowel movement considerable period of time. Denies any nausea or vomiting. Patient underwent a CT scan on 07/07/2025 which shows a left hydronephrosis with perinephric stranding no kidney stones were noted nonspecific colitis extremely constipated common bile duct dilation with dilated hepatic ducts but no gallstones were noted with gallbladder still intact patient is noted to have bone metastatic disease diverticulosis without diverticulitis and a large amount of constipated stool in her rectum with slight thickening of the rectal wall. Patient's admitting laboratory shows WBC of 6.8 hemoglobin is 8.4 hematocrit is 24.4 platelets a 140,000 sodium is 134 potassium 3.5 chloride 103 bicarb is 24 BUN of 20 creatinine is 1.68 random blood sugar is 95 lipase is 54 total bilirubin is 0.9 AST is 49 ALT is 28 alkaline phosphatase 114. Patient had a previous visit with her family doctor showing elevated CEA CA 15-3 and CA 125. I was asked to see the patient for surgical consultation. Allergies NKDA Medications see med list Past medical history: Corrective lenses, depression, 2 para 1 miscarriage 1, hard of hearing uses hearing aids hyperlipidemia, hypertension, atherosclerotic vascular disease coronary artery disease noted on CT scan, right breast cancer was treated with surgery but has a recent reoccurrence with Mets to the back and pelvis last chemo was 1 week ago, obesity, chronic UTIs, history of a epigastric hernia appears to be old with fat, diverticulosis, history of colon polyps. Patient denies any other heart lungs digestive musculoskeletal neurological seizure disorder psychiatric problems risks are Infectious diseases HIV or AIDS. Past surgical history: CITLALY with BSO, right modified radical mastectomy in 2005, colonoscopy with polypectomy in 2014, questionable history of possible ERCP but she does not remember when. Social history: History of tobacco abuse 1 pack per day x2 years stopped 60 years ago, 2 drinks per day states she stopped 2 weeks ago, denies any recreational drug usage. Vitals: Temperature is 97.8? pulse 77 respirations 20 BP is 136/66 SaO2 is 99% on room air. Patient is 5 ft 4 in tall 128 lb. Head is normocephalic eyes PERRLA EOMI is intact nares are clear septum midline EACs and pinnae unremarkable oropharyngeal cavity is in moderate repair oropharyngeal soft tissues are slightly dry. Heart regular rate and rhythm when occasional dropped beats. Lungs no rales rhonchi or wheezes noted but poor inspiratory and expiratory effort is noted. Abdomen is soft nondistended no masses or peritoneal signs he has some left-sided tenderness but no rebound guarding or masses. Musculoskeletal very poor muscle tone and strength equal bilaterally. Rectal exam was performed with nurse in attendance patient has grade 1 hemorrhoids the rectum was completely filled with hard stool appears the rectal wall is soft but no palpable masses are noted but limited by the amount of stool in the rectum. Impression: Left-sided abdominal pain or approximately [address] scan showing nonspecific colitis left ureteral dilatation with perinephric standing possible nephritis History of chronic UTIs History of right breast cancer with recent bone Mets undergoing chemo last treatment 1 week ago Epigastric hernia with fat appears to be old noninflamed Severe constipation obstipation with impacted rectum no bowel movement for 10-11 days as per patient Depression, Hyperlipidemia, Hypertension, CT scan showing normal gallbladder with dilated hepatic ducts and common bile duct rule out distal duct pathology WBC is 6.8 Plan: Discussed with patient the findings we will go ahead and gives enemas to disimpact the patient Reglan milk of magnesia possible MiraLax if needed. Also check a MRCP rule out pathology in the distal common bile duct, recheck laboratory. Patient will be followed closely but no need for emergent surgical intervention the patient continues to have problems may warrant a screening colonoscopy but she needs considerable cleaning out of her colon prior to any scheduled procedure. All questions were answered to patient's satisfaction no need for emergent surgical intervention at this time. [facility] Social History household members: spouse Smoking Status: Former smoker alcohol intake: current Meds Home Medications and Allergies Home Medications ?Medication ?Instructions ?Recorded ?Confirmed ?Type rosuvastatin 40 mg tablet 40 mg PO DAILY #90 tabs 08/23/24 07/07/25 Rx nitrofurantoin 100 mg PO DAILY PRN intercourse 01/25/25 07/07/25 Rx monohydrate/macrocrystals 100 mg #30 caps capsule (Macrobid) duloxetine 60 mg capsule,delayed 60 mg PO DAILY #90 caps 03/22/25 07/07/25 Rx release ezetimibe 10 mg tablet (Zetia) 10 mg PO DAILY #90 tabs 04/19/25 07/07/25 Rx ondansetron 4 mg disintegrating See Rx Instructions PO Q8H PRN 07/05/25 07/07/25 Rx tablet nausea and vomiting #60 tabs Held on 07/07/25. Instructions: for constipation lidocaine-prilocaine 2.5 %-2.5 % 1 applic topical PRN PRN port 07/07/25 07/07/25 History topical cream access Allergies Allergy/AdvReac Type Severity Reaction Status Date / Time No Known Drug Allergies Allergy Verified 07/05/25 15:53 Exam Vital Signs (past 8 hours): Oxygen Delivery Method Room Air Oxygen Flow Rate 0 Objective Labs 07/08/25 05:50 07/08/25 05:50 Labs: Laboratory Results - last 24 hr 07/07/25 07/07/25 07/07/25 14:39 17:30 18:57 WBC 7.9 RBC 3.10 L Hgb 9.4 L Hct 27.7 L MCV 89.4 D MCH 30.3 MCHC 33.9 RDW 15.7 H Plt Count 162 Neut % (Auto) 80.1 H Lymph % (Auto) 9.7 L Gosper % (Auto) 9.5 Eos % (Auto) 0.4 L Baso % (Auto) 0.3 Neut # (Auto) 6300 Lymph # (Auto) 800 L Gosper # (Auto) 700 Eos # (Auto) 0 Baso # (Auto) 0 Sodium 131 L 132 L Potassium 3.7 3.7 Chloride 95 L 98 Carbon Dioxide 25 24 BUN 24 H 21 H Creatinine 1.83 H 1.73 H Estimated GFR 28 L 30 L BUN/Creatinine Ratio 13.1 12.1 Glucose 111 H 101 H Calcium 9.7 8.9 Total Bilirubin 0.9 AST 49 H ALT 28 Alkaline Phosphatase 114 Total Protein 7.0 Albumin 3.9 Globulin 3.1 Albumin/Globulin Ratio 1.3 Lipase 54 Urine Color Yellow Urine Appearance Clear Urine pH 6.0 Ur Specific [place] 1.025 Urine Protein 2+ H Urine Glucose (UA) Negative Urine Ketones 1+ H Urine Occult Blood Trace-intact Urine Nitrate Negative Urine Bilirubin 1+ H Ur Bilirubin Confirm Negative Urine Urobilinogen 1.0 Ur Leukocyte Esterase Negative Urine RBC None seen Urine WBC 0-1/hpf Ur Squamous Epith Cells 0-1 /hpf Urine Bacteria None seen Granular Casts 0-1/lpf Ur Culture Indicated? Cult not indicated Vol Urine Centrifuged 10ml (spun) 07/08/25 05:50 WBC 6.8 RBC 2.73 L Hgb 8.4 L Hct 24.4 L MCV 89.3 MCH 30.7 MCHC 34.4 RDW 15.1 H Plt Count 145 L Neut % (Auto) 80.1 H Lymph % (Auto) 12.0 L Gosper % (Auto) 6.9 Eos % (Auto) 0.5 L Baso % (Auto) 0.5 Neut # (Auto) 5400 Lymph # (Auto) 800 L Gosper # (Auto) 500 Eos # (Auto) 0 Baso # (Auto) 0 Sodium 134 L Potassium 3.5 Chloride 103 Carbon Dioxide 24 BUN 20 H Creatinine 1.68 H Estimated GFR 31 L BUN/Creatinine Ratio 11.9 Glucose 95 Calcium 9.0 Total Bilirubin AST ALT Alkaline Phosphatase Total Protein Albumin Globulin Albumin/Globulin Ratio Lipase Urine Color Urine Appearance Urine pH Ur Specific [place] Urine Protein Urine Glucose (UA) Urine Ketones Urine Occult Blood Urine Nitrate Urine Bilirubin Ur Bilirubin Confirm Urine Urobilinogen Ur Leukocyte Esterase Urine RBC Urine WBC Ur Squamous Epith Cells Urine Bacteria Granular Casts Ur Culture Indicated? Vol Urine Centrifuged Assessment & Plan Time-Based Coding :: [TOTAL MINUTES] spent with patient and on the chart (including review of chart, obtaining history, exam, reviewing outside data, placing orders, documenting exam and treatment plan, and counseling patient) on [DATE]. Quality VTE Deep Vein Thrombosis/Pulmonary Embolism Present on Admission: No IH PROFEE Acid Tank Cleaner Document charge(s): Yes
[2025-07-08] MEDS: PIPERACILLIN/TAZO 3.375 GM in SODIUM CHLORIDE 0.9% 100 ML IV ×2 (13:30→20:47)
[2025-07-08 14:00] VITALS: BP 123/61; PULSE 89; RESP 15; TEMP 36.1; O2SAT 95
--- NOTE | 2025-07-08 15:48 | CM.DANOTE ---
Patient is an 80 yo female who was admitted OBS Status on 07/07/25 for Bowel block/constipation. Pt has MCR and REG [employer] for insurance and her PCP is Rey Stallings on [facility]. EMR was reviewed. Per , pt with hx of breast cancer with mets and established at [facility] for Oncology and currently getting chemo tx and pt with malnourishment and anemia and not yet stable for discharge today. Getting IV fluids for MAYA. Urology has been following pt. Per Surgeon, pt with ongoing constipation that has not resolved and will attempt enema and bowel regiment today but currently no need for surgical intervention but likely colonoscopy outpt. Per INDUSTRIAL MAINTENANCE TECHNICIAN, pt has been 1PA with FWW in room and mostly sleeping. SW met bedside with pt briefly and explained role and she confirms she lives on [facility] with her /POA Eh and has been independent with ADLs but since her chemo treatments she has been more fatigued and nauseous and needing more assist from spouse lately. Pt confirms that her preference is to discharge home, was initially hopeful to go home today, but more anemic and spouse went back to [place] to take care of their house and get pt and himself more belongings. Spouse plans to transport pt home at d/c. Pt currently does not anticipate any needs at d/c pending progress. Plan: SW to follow closely for pt's progress with bm and improved labs to confirm safe discharge home with spouse assist and any further identified discharge planning needs. DIXON Sampson Discharge Planning/Care Management CM Discharge Assessment Start: 07/07/25 20:28 Freq: Status: Active Protocol: Document 07/08/25 15:44 BF (Rec: 07/08/25 15:48 BF [id number]) Discharge Planning Assessment Assigned Discharge DIXON Francois 21 Dealer Provider Rey Stallings Insurance Medicare DPOA/Assigned spouse Eh Designee Name Contact Information [phone] Advance Directives? Yes Advance Directives No on File History Provided By Patient,Significant Other,Medical Record Has Patient been No admitted in last 30 days? Prior Living House Arrangements Household Members spouse Type of Relies on Others transporation used prior to admit Independent with ADL Yes: mostly 's Is patient alert and Yes oriented? Needs Assistance Managing Medications,Home Chores / Shopping With Caregiver for No Another Community Services IV Therapy used prior to admission: Comment currently getting chemo DME Already Rented / FWW / Walker Owned Comment Pending progress, hopeful for home Barriers to No Discharge Discharge Plan Home Transportation Spouse plans to transport back to [facility] Referrals Initiated None needed Additional Comment Pending progress Whiteboard Updated Yes in Patient Room with name and ext. # of Campground Caretaker Review Status In Process Please Provide Date 07/08/25 Initial DC Assessment Was Performed Next Review Type Continued Stay Review
[2025-07-08] MEDS: ACETAMINOPHEN 325 MG TABLET 650 MG PO (19:29)
[2025-07-08 20:00] VITALS: BP 129/68; PULSE 85; RESP 19; TEMP 37.2; O2SAT 99
[2025-07-08] MEDS: METOCLOPRAMIDE 10 MG/2 ML INJ 5 MG IV (20:47)
[2025-07-08] MEDS: SODIUM CHLORIDE 0.9% FLUSH 10 ML IV (20:48)
[2025-07-09] MEDS: PIPERACILLIN/TAZO 3.375 GM in SODIUM CHLORIDE 0.9% 100 ML IV ×3 (05:01→20:45)
--- NOTE | 2025-07-09 07:09 | P.PN_ITS ---
Subjective Subjective Date Patient Seen: 07/09/25 Interval history: 80-year-old female with past medical history of metastatic breast cancer currently being followed by [facility] in [place] and on chemotherapy, hyperlipidemia, depression presents with abdominal pain. Of note the patient was here 3 times over the last 6 to 7 days for similar complaints.. The patient did have CT abdomen with contrast without any acute finding and was sent home. The patient was seen at [facility] emergency department this week and was sent home after negative workup. The only finding over the last week was hydronephrosis bilaterally with left greater than right. However there is no obstructing calculus seen. The patient admitted to have some nausea but denies any vomiting, diarrhea, fever, chills, dysuria, chest pain or coughing. In the emergency room, the patient was hemodynamically stable. Labs were relatively benign except for creatinine 1.8. Of note patient's creatinine on June [address] of the abdomen and pelvis without contrast still shows severe left hydronephrosis and moderate right hydronephrosis without any change from the CT done about a week ago. ER physician did consult the patient's oncologist as well as urologist who recommended to admit the patient here for IV fluid as this is most likely due to prerenal. The patient was given 1 L of IV fluid and request for admission. 07/08: Early this morning she announced that [place] was [place] the 10:[place] ferry [place]. I discussed with her and her that the hemoglobin dropped from 9.4 down to 8.4 and the creatinine did not move much, dropping from 1.73 down to 1.68 with IV fluid overnight. I reviewed the CT scans which showed areas of colitis and hydronephrosis. I also reviewed the recent ED visits and PCP visit notes. I discussed her with the surgeon on-call who reviewed her extensive records and consulted on her. She has multiple active issues, most of them not acute but we are unable to document that her hemoglobin has been this low before. She was discussed with Oncology and Urology from the ED who anticipated that her kidney function would improve with the IV fluid she received overnight. That will need to be extended. Apparently the hydronephrosis is not new. Previous records regarding the hydronephrosis, from [place], were reviewed during yesterday's discussions. 9/14: MR abdomen from yesterday does not appear to show any additional issues besides the hydronephrosis, possible colitis, obstipation. She was seen by General surgery and is currently being treated for the obstipation with MiraLax and Fleet's enema. She has potential contraindication for Relistor/Movantik because of the thickening/evidence for colitis at the hepatic flexure. Her opioid use, most recently hydromorphone is likely the cause of the intermittent abdominal pain and evident retained stool on imaging. The hemoglobin is stable at 8.8, no longer dropping. The creatinine is stable at 1.73, after 1.68 yesterday. She has an appointment coming up tomorrow for cancer follow-up at [facility] which she wishes to be discharged for. Meds Home Medications and Allergies Home Medications ?Medication ?Instructions ?Recorded ?Confirmed ?Type rosuvastatin 40 mg tablet 40 mg PO DAILY #90 tabs 08/23/24 5 Rx nitrofurantoin 100 mg PO DAILY PRN intercourse 5 07/07/25 Rx monohydrate/macrocrystals 100 mg #30 caps capsule (Macrobid) duloxetine 60 mg capsule,delayed 60 mg PO DAILY #90 caps 03/22/25 5 Rx release ezetimibe 10 mg tablet (Zetia) 10 mg PO DAILY #90 tabs 04/19/25 5 Rx ondansetron 4 mg disintegrating See Rx Instructions PO Q8H PRN 07/05/25 07/07/25 Rx tablet nausea and vomiting #60 tabs Held on 07/07/25. Instructions: for constipation lidocaine-prilocaine 2.5 %-2.5 % 1 applic topical PRN PRN port 07/07/25 0 07/07/25 History topical cream access Assessment & Plan MAYA. Bilateral Hydronephrosis * Baseline creatinine on June 30, 2025 was 1.0. Creatinine today is 1.68. She has good urine output. * Continue IV fluid as it is likely prerenal. As stated above both the patient's oncologist and urologist states that the patient can be managed here with IV fluid. * CT scan shows no acute changes from the one done on June 30, 2025. There is still bilateral hydronephrosis with left greater than right. If the patient's renal function does not continue to improve consider consulting urology again and possible transfer. This was apparently being followed already at oncology despite the patient and her stating that they were not aware? Colitis/Obstipation * Consulted General surgery * MRI reviewed * Miralax, Fleets to treat Opioid induced constipation * Area of potential colitis at the hepatic flexure is a relative contraindication to the use of Movantik/Relistor to reverse the opioid slowing effect. * IV Zosyn Normocytic Anemia * Hgb dropped from 9.4 to 8.4, then 8.8 * Follow Hyperlipidemia. Resumed home statin. Crestor and Zetia. Depression. Resumed home antidepressant. Duloxetine. Known metastatic to bone breast cancer with ongoing abdominal pain. Next appointment is 07/10 follow-up as outpatient with oncology at [facility]. Pain control. DVT prophylaxis Enoxaparin CODE STATUS full code. Disposition likely home in 1 more day. Exam Vital Signs (past 8 hours): Oxygen Delivery Method Room Air Oxygen Flow Rate 0 Narrative Exam Narrative: Alert and oriented x3. No apparent distress. She continues to drift away during conversation, starting out strong in her sentence and then drifting off with her eyes closed. Heart is regular rate and rhythm without murmur. Lungs are clear to auscultation bilaterally. Abdomen is soft, bowel sounds positive, nontender, no organomegaly. Extremities have no ankle edema. Objective Labs 07/09/25 08:50 07/09/25 08:50 [facility] Social History household members: spouse Smoking Status: Former smoker alcohol intake: current Assessment & Plan Time-Based Coding :: [TOTAL MINUTES] spent with patient and on the chart (including review of chart, obtaining history, exam, reviewing outside data, placing orders, documenting exam and treatment plan, and counseling patient) on [DATE]. Quality VTE Deep Vein Thrombosis/Pulmonary Embolism Present on Admission: No
[2025-07-09 08:00] VITALS: BP 124/63; PULSE 85; RESP 20; TEMP 36.7; O2SAT 96
--- NOTE | 2025-07-09 08:44 | P.PN_ITS ---
Subjective Subjective Date Patient Seen: 07/09/25 Time Patient Seen: 08:45 Interval history: Patient is resting comfortably in bed eating a general diet. Patient is passing flatus but she has had no bowel movements. States the left-sided pain is better but she just having colicky cramps from all the motility agents and laxatives. Patient's morning laboratory has not been drawn yet. MRCP is still pending Vitals: Temperature is 99.0? pulse 85 respirations 19 BP is 129/68 SaO2 is 99% on room air Heart regular rate and rhythm. Lungs poor inspiratory and expiratory effort poor chest wall motion noted. Abdomen is soft nondistended no masses or peritoneal signs good active bowel sounds Impression: Abdominal pain of [address] scan showing left perinephric stranding with dilated ureter no kidney stones were noted dilated common bile duct multiple metastatic lesions to the spine and pelvis History of recurrent breast cancer with Mets to the bone most recent chemo was 1 week ago Obstipation constipation Plan: Discussed with the patient the findings we will continue with motility agents to disimpact the patient the stool in her rectum is so hard she can not be manually disimpacted. We will go ahead and await the MRCP the results did show what is going on with her dilated common bile. Also made have Urology see the patient for the left kidney inflammation chin and dilated ureter. All questions were answered to patient's satisfaction. Exam Vital Signs (past 8 hours): Oxygen Delivery Method Room Air Oxygen Flow Rate 0 Objective Labs 07/08/25 05:50 07/08/25 05:50 [facility] Social History household members: spouse Smoking Status: Former smoker alcohol intake: current Assessment & Plan Time-Based Coding :: [TOTAL MINUTES] spent with patient and on the chart (including review of chart, obtaining history, exam, reviewing outside data, placing orders, documenting exam and treatment plan, and counseling patient) on [DATE]. Quality VTE Deep Vein Thrombosis/Pulmonary Embolism Present on Admission: No IH PROFEE Law Enforcement Officer Document charge(s): Yes
[2025-07-09] MEDS: SODIUM CHLORIDE 0.9% 1,000 ML 100 ML IV (08:50)
[2025-07-09] MEDS: MAGNESIUM HYDROXIDE 30 ML UDC PO (08:51)
[2025-07-09] MEDS: SODIUM CHLORIDE 0.9% FLUSH 10 ML IV (08:52)
[2025-07-09] MEDS: FLEETS ENEMA 1 EACH PR ×2 (08:53→18:17)
[2025-07-09] MEDS: ENOXAPARIN 30 MG/0.3 ML SYRINGE SUBCUT (08:53)
[2025-07-09 09:01] LABS: Hematocrit 26.6 % (36-46); Hemoglobin 8.8 g/dL (12.0-16.0); Mean Corpuscular HGB Conc 33.1 % (30-36); Mean Corpuscular Hemoglobin 30.1 PG (26-34); Mean Corpuscular Volume 91.1 fL (80-100); Platelet Count 155 X10^3/uL (150-400)
[2025-07-09 09:14] LABS: Alanine Aminotransferase 22 IU/L (<35); Albumin 3.1 g/dL (3.5-5.0); Albumin Globulin Ratio 1.1 (1.0-2.8); Alkaline Phosphatase 90 U/L (38-126); Blood Urea Nitrogen 18 mg/dL (7-17); Calcium 8.4 mg/dL (8.4-10.2); Carbon Dioxide 22 mmol/L (22-32); Chloride 108 mmol/L (98-107); Estimated Glomerular Filt Rate 30 mL/min (>60); Globulin 2.8 g/dL (1.7-4.1); Glucose 103 mg/dL (70-99); HEMOLYSIS < 15 (0-50); Lipase 80 U/L (23-300); Potassium 3.5 mmol/L (3.4-5.1); Sodium 138 mmol/L (137-145); Total Protein 5.9 g/dL (6.3-8.2)
[2025-07-09] MEDS: ACETAMINOPHEN 325 MG TABLET 650 MG PO (12:01)
[2025-07-09] MEDS: POTASSIUM CHLORIDE 20 MEQ TAB PO (14:04)
[2025-07-09] MEDS: SODIUM CHLORIDE 0.9% 1,000 ML 125 ML IV (18:16)
[2025-07-09 19:00] VITALS: BP 124/67; PULSE 73; RESP 18; TEMP 36.3; O2SAT 99
[2025-07-09] MEDS: METOCLOPRAMIDE 10 MG/2 ML INJ 5 MG IV (20:44)
[2025-07-10] MEDS: SODIUM CHLORIDE 0.9% 1,000 ML 125 ML IV ×2 (02:45→11:19)
[2025-07-10] MEDS: METOCLOPRAMIDE 10 MG/2 ML INJ 5 MG IV (03:24)
[2025-07-10] MEDS: FLEETS ENEMA 1 EACH PR (04:16)
[2025-07-10] MEDS: PIPERACILLIN/TAZO 3.375 GM in SODIUM CHLORIDE 0.9% 100 ML IV (04:26)
[2025-07-10 06:17] LABS: Mean Corpuscular HGB Conc 33.7 % (30-36); Mean Corpuscular Hemoglobin 30.6 PG (26-34); Mean Corpuscular Volume 90.7 fL (80-100); Platelet Count 139 X10^3/uL (150-400)
[2025-07-10 06:22] LABS: Alanine Aminotransferase 17 IU/L (<35); Albumin 2.3 g/dL (3.5-5.0); Albumin Globulin Ratio 0.9 (1.0-2.8); Alkaline Phosphatase 80 U/L (38-126); Blood Urea Nitrogen 12 mg/dL (7-17); Calcium 7.1 mg/dL (8.4-10.2); Carbon Dioxide 19 mmol/L (22-32); Chloride 113 mmol/L (98-107); Estimated Glomerular Filt Rate 37 mL/min (>60); Globulin 2.6 g/dL (1.7-4.1); Glucose 87 mg/dL (70-99); HEMOLYSIS < 15 (0-50); Potassium 3.2 mmol/L (3.4-5.1); Sodium 138 mmol/L (137-145); Total Protein 4.9 g/dL (6.3-8.2)
[2025-07-10 06:23] LABS: Hematocrit 20.1 % (36-46); Hemoglobin 6.8 g/dL (12.0-16.0)
[2025-07-10 06:30] VITALS: BP 129/71; PULSE 74; RESP 16; TEMP 36.1; O2SAT 96
[2025-07-10] MEDS: BISACODYL 10 MG SUPP PR (06:51)
--- NOTE | 2025-07-10 07:01 | PC.NURSE ---
shiftman: Enema administered w/ minimal effect, patient continuing to pass gas with smears of brown stool. Abdomen is distended, bowel tones are present. IV Reglan given for intermittent nausea, no vomiting overnight. Encouraging ambulation although patient is fatigued. Suppository given this am. Notified MD Pryor of critical H/H, awaiting orders. Vital signs are stable. Patient denies dizziness or SOB, reports nausea & fatigue. No visible signs of bleeding noted. Blood consent signed.
--- NOTE | 2025-07-10 07:16 | PM.PN.1 ---
Subjective Subjective Date Patient Seen: 07/10/25 Exam Vital Signs (past 8 hours): - 07/10/25 06:30 Temperature 97.0 F L Pulse Rate 74 Respiratory Rate 16 Blood Pressure 129/71 Pulse Oximetry 96 Oxygen Flow Rate 0 Oxygen Delivery Method Room Air Oxygen Flow Rate 0 Objective Labs 07/10/25 05:23 07/10/25 05:23 Labs: Laboratory Results - last 24 hr 07/09/25 07/10/25 08:50 05:23 WBC 5.8 5.3 RBC 2.92 L 2.21 L Hgb 8.8 L 6.8 L* Hct 26.6 L 20.1 L* MCV 91.1 90.7 MCH 30.1 30.6 MCHC 33.1 33.7 RDW 15.1 H 15.4 H Plt Count 155 139 L Sodium 138 138 Potassium 3.5 3.2 L Chloride 108 H 113 H Carbon Dioxide 22 19 L BUN 18 H 12 Creatinine 1.73 H 1.44 H Estimated GFR 30 L 37 L BUN/Creatinine Ratio 10.4 8.3 Glucose 103 H 87 Calcium 8.4 7.1 L Total Bilirubin 0.6 0.4 AST 43 H 36 ALT 22 17 Alkaline Phosphatase 90 80 Total Protein 5.9 L 4.9 L Albumin 3.1 L 2.3 L Globulin 2.8 2.6 Albumin/Globulin Ratio 1.1 0.9 L Lipase 80 PFSH Social History household members: spouse Smoking Status: Former smoker alcohol intake: current Assessment & Plan Time-Based Coding :: [TOTAL MINUTES] spent with patient and on the chart (including review of chart, obtaining history, exam, reviewing outside data, placing orders, documenting exam and treatment plan, and counseling patient) on [DATE]. Quality VTE Deep Vein Thrombosis/Pulmonary Embolism Present on Admission: No
[2025-07-10 08:00] VITALS: BP 148/75; PULSE 68; RESP 15; TEMP 36.6; O2SAT 98
[2025-07-10 08:27] LABS: Hematocrit 24.8 % (36-46); Hemoglobin 8.5 g/dL (12.0-16.0)
[2025-07-10] MEDS: POTASSIUM CHLORIDE IN WATER 10 MEQ/100 ML PIGGYBACK 100 MEQ IV ×4 (08:58→12:30)
[2025-07-10] MEDS: ENOXAPARIN 30 MG/0.3 ML SYRINGE SUBCUT (09:00)
[2025-07-10] MEDS: SODIUM CHLORIDE 0.9% FLUSH 10 ML IV (09:02)
--- NOTE | 2025-07-10 09:51 | PM.PN.IH.1 ---
Subjective Subjective Date Patient Seen: 07/10/25 Time Patient Seen: 09:30 Interval history: Patient is seen in her room sitting on the toilet passing flatus small smears of stool. Patient is still having crampy abdominal pain associated with the laxative use. Patient is very slow to progress. Patient has a history of severe obstipation having no bowel movement for approximately 12-13 days. Currently being treated for recurrent breast cancer with bone Mets last chemo was 1 week ago. Patient's MRCP was performed which shows liver cyst with dilated liver ducts. Normal gallbladder normal common bile duct slightly dilated pancreatic duct. Left hydronephrosis is unchanged and bone Mets are noted of the spine and pelvis. Morning laboratory shows WBC of 5.3 hemoglobin is 8.5 hematocrit is 24.8 platelets are 139,000 sodium is 138 potassium 3.2 chloride 113 bicarb is 19 BUN of 12 creatinine is 1.44 random blood sugar is 87. Normal LFTs. Vitals: Temperature is 97.8? pulse is 68 respirations 15 BP is 148/75 SaO2 is 98% on room air. Patient having small smears of stool Exam can not be done as patient is in the bathroom unable to get to the patient through IV poles. Impression: Abdominal pain with severe obstipation constipation no bowel movement for 12-13 days Recurrent breast cancer with bone Mets undergoing chemo Left hydronephrosis unchanged from previous x-rays. WBC of 5.3 Plan: We will continue with aggressive bowel regime with enemas laxatives and MiraLax. All questions were answered to patient's satisfaction. They are questioning about going to see her oncologist at a tertiary center. We will discuss with hospitalist. No need for emergent surgical intervention. Exam Vital Signs (past 8 hours): - 07/10/25 06:30 07/10/25 08:00 Temperature 97.0 F L 97.8 F Pulse Rate 74 68 Respiratory Rate 16 15 Blood Pressure 129/71 148/75 H Pulse Oximetry 96 98 Oxygen Flow Rate 0 0 Oxygen Delivery Method Room Air Oxygen Flow Rate 0 Objective Labs 07/10/25 08:22 07/10/25 05:23 Labs: Laboratory Results - last 24 hr 07/10/25 07/10/25 05:23 08:22 WBC 5.3 RBC 2.21 L Hgb 6.8 L* 8.5 L Hct 20.1 L* 24.8 L MCV 90.7 MCH 30.6 MCHC 33.7 RDW 15.4 H Plt Count 139 L Sodium 138 Potassium 3.2 L Chloride 113 H Carbon Dioxide 19 L BUN 12 Creatinine 1.44 H Estimated GFR 37 L BUN/Creatinine Ratio 8.3 Glucose 87 Calcium 7.1 L Total Bilirubin 0.4 AST 36 ALT 17 Alkaline Phosphatase 80 Total Protein 4.9 L Albumin 2.3 L Globulin 2.6 Albumin/Globulin Ratio 0.9 L PFSH Social History household members: spouse Smoking Status: Former smoker alcohol intake: current Assessment & Plan Time-Based Coding :: [TOTAL MINUTES] spent with patient and on the chart (including review of chart, obtaining history, exam, reviewing outside data, placing orders, documenting exam and treatment plan, and counseling patient) on [DATE]. 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
--- NOTE | 2025-07-10 11:44 | PM.DS.1 ---
History of Present Illness History of Present Illness Date Patient Seen: 07/10/25 Time Patient Seen: 11:44 Chief complaint: Bowel Blockage sent from PCP, Cancer patient Narrative: 80-year-old female with past medical history of metastatic breast cancer currently being followed by [facility] in [place] and on chemotherapy, hyperlipidemia, depression presents with abdominal pain. Of note the patient was here 3 times over the last 6 to 7 days for similar complaints.. The patient did have CT abdomen with contrast without any acute finding and was sent home. The patient was seen at [facility] emergency department this week and was sent home after negative workup. The only finding over the last week was hydronephrosis bilaterally with left greater than right. However there is no obstructing calculus seen. The patient admitted to have some nausea but denies any vomiting, diarrhea, fever, chills, dysuria, chest pain or coughing. In the emergency room, the patient was hemodynamically stable. Labs were relatively benign except for creatinine 1.8. Of note patient's creatinine on June [address] of the abdomen and pelvis without contrast still shows severe left hydronephrosis and moderate right hydronephrosis without any change from the CT done about a week ago. ER physician did consult the patient's oncologist as well as urologist who recommended to admit the patient here for IV fluid as this is most likely due to prerenal. The patient was given 1 L of IV fluid and request for admission. Discharge Providers Provider Date of admission: 07/09/25 14:34 Discharge Date: 07/10/25 Primary care physician: Rey Stallings MD Consults: 07/08/25 10:35 Consult to General Surgery Routine Comment: Consulting Provider: Keith Robles Reason for consultation: Colitis Has provider been notified: Yes Discharge provider: Kareem Carolina MD Summary Hospital Course Hospital Course: 07/08: Early this morning she announced that she was leaving for the 10:30 ferry back home. I discussed with her and her that the hemoglobin dropped from 9.4 down to 8.4 and the creatinine did not move much, dropping from 1.73 down to 1.68 with IV fluid overnight. I reviewed the CT scans which showed areas of colitis and hydronephrosis. I also reviewed the recent ED visits and PCP visit notes. I discussed her with the surgeon on-call who reviewed her extensive records and consulted on her. She has multiple active issues, most of them not acute but we are unable to document that her hemoglobin has been this low before. She was discussed with Oncology and Urology from the ED who anticipated that her kidney function would improve with the IV fluid she received overnight. That will need to be extended. Apparently the hydronephrosis is not new. Previous records regarding the hydronephrosis, from [place], were reviewed during yesterday's discussions. 07/09: MR abdomen from yesterday does not appear to show any additional issues besides the hydronephrosis, possible colitis, obstipation. She was seen by General surgery and is currently being treated for the obstipation with MiraLax and Fleet's enema. She has potential contraindication for Relistor/Movantik because of the thickening/evidence for colitis at the hepatic flexure. Her opioid use, most recently hydromorphone is likely the cause of the intermittent abdominal pain and evident retained stool on imaging. The hemoglobin is stable at 8.8, no longer dropping. The creatinine is stable at 1.73, after 1.68 yesterday. She has an appointment coming up tomorrow for cancer follow-up at [facility] which she wishes to be discharged for. 07/10: The hemoglobin this morning is 8.5. She continues to have intermittent minimal rectal smearing type bowel movements. The obstipation is clearly the main cause of her current symptoms. The potassium is 3.2 so she will receive 40 mEq of IV potassium chloride before discharging. She would like to go to her oncology appointment in [place] as previously planned today. She continues to have abdominal cramping and on exam has bloating with mild diffuse tenderness. She would be expected to respond readily to Relistor to treat the opioid related constipation but with the possible area of colitis at the liver flexure that has not been used. At discharge we will give her a prescription for Movantik which would hopefully provide a more gentle release of the opioid induced colonic ileus. So far she is received oral MiraLax and multiple fleets enemas. MAYA. Bilateral Hydronephrosis Baseline creatinine on June 30, 2025 was 1.0. Creatinine today is 1.68. She has good urine output. Continue IV fluid as it is likely prerenal. As stated above both the patient's oncologist and urologist states that the patient can be managed here with IV fluid. CT scan shows no acute changes from the one done on June 30, 2025. There is still bilateral hydronephrosis with left greater than right. If the patient's renal function does not continue to improve consider consulting urology again and possible transfer. This was apparently being followed already at oncology despite the patient and her stating that they were not aware? Colitis/Obstipation Consulted General surgery MRI reviewed Miralax Fleets to treat Opioid induced constipation Area of potential colitis at the hepatic flexure is a relative contraindication to the use of Movantik/Relistor to reverse the opioid slowing effect. IV Zosyn Normocytic Anemia Hgb dropped from 9.4 to 8.4, then 8.8 and 8.5 on the day of discharge Hyperlipidemia. Crestor and Zetia. Depression. Duloxetine. Known metastatic to bone breast cancer with ongoing abdominal pain. Today -- 07/10 follow-up as outpatient with oncology at [facility]. Pain control. In summary the patient has clearly obstipation related symptoms and a variety of other intra-abdominal abnormalities including most significantly possible colitis of the hepatic flexure and bilateral hydronephrosis. These are apparently not new findings. She was evaluated by General surgery while here. She will follow up with her oncologist later today and she will be given a prescription for Movantik and MiraLax. Status at Discharge Cognitive/behavioral status at discharge: at baseline, oriented Functional status at discharge: uses cane/walker Time Spent with Patient Time spent: Greater than 30 minutes Exam Vital Signs (past 8 hours): - 07/10/25 06:30 07/10/25 08:00 Temperature 97.0 F L 97.8 F Pulse Rate 74 68 Respiratory Rate 16 15 Blood Pressure 129/71 148/75 H Pulse Oximetry 96 98 Oxygen Flow Rate 0 0 Oxygen Delivery Method Room Air Oxygen Flow Rate 0 Narrative Exam Narrative: Alert and oriented x3. No apparent distress. Heart is regular rate and rhythm without murmur. Lungs are clear to auscultation bilaterally. Extremities have no ankle edema. Abdomen is mildly bloated with diffuse mild tenderness. Objective Labs 07/10/25 08:22 07/10/25 05:23 Labs: Laboratory Results - last 24 hr 07/10/25 07/10/25 05:23 08:22 WBC 5.3 RBC 2.21 L Hgb 6.8 L* 8.5 L Hct 20.1 L* 24.8 L MCV 90.7 MCH 30.6 MCHC 33.7 RDW 15.4 H Plt Count 139 L Sodium 138 Potassium 3.2 L Chloride 113 H Carbon Dioxide 19 L BUN 12 Creatinine 1.44 H Estimated GFR 37 L BUN/Creatinine Ratio 8.3 Glucose 87 Calcium 7.1 L Total Bilirubin 0.4 AST 36 ALT 17 Alkaline Phosphatase 80 Total Protein 4.9 L Albumin 2.3 L Globulin 2.6 Albumin/Globulin Ratio 0.9 L PFSH Social History household members: spouse Smoking Status: Former smoker alcohol intake: current Discharge Plan Discharge Plan Patient Disposition: Home Provider Discharge Comment: Follow up with your Oncologist in [place] later today. Discharge orders & Medications Prescriptions: New polyethylene glycol 3350 [Gavilax] 17 gram Powder In Packet 17 gm PO DAILY Qty: 30 0RF Movantik 12.5 mg tablet 12.5 mg PO QAM Qty: 30 0RF Rx Instructions: must be taken on empty stomach; no food 1 hr after or 2-3 hrs before dose Continued rosuvastatin 40 mg tablet 40 mg PO DAILY Qty: 90 3RF nitrofurantoin monohyd/m-cryst [Macrobid] 100 mg capsule 100 mg PO DAILY PRN (Reason: intercourse) Qty: 30 0RF Rx Instructions: take 1 tablet following intercourse as needed To prevent urinary tract infection duloxetine 60 mg capsule,delayed release(DR/EC) 60 mg PO DAILY Qty: 90 3RF ezetimibe [Zetia] 10 mg tablet 10 mg PO DAILY Qty: 90 0RF lidocaine-prilocaine 2.5-2.5 % cream 1 applic topical PRN PRN (Reason: port access) ondansetron 4 mg tablet,disintegrating See Rx Instructions PO Q8H PRN (Reason: nausea and vomiting) Qty: 60 0RF Rx Instructions: Take one to two tablets three times daily as needed for nausea Follow up/Referrals: Rey Stallings MD [Primary Care Provider, Family Practice] Diet/Activity/Treatments Diet: Diet as Tolerated Visit Report/Discharge Packet Stand Alone Forms: Patient Portal/API, Stroke Signs & Symptoms Discharge Data Primary Care Provider: Rey Stallings VTE Deep Vein Thrombosis/Pulmonary Embolism Present on Admission: No
[2025-07-10] MEDS: ONDANSETRON 4 MG ODT SL (15:01)
--- NOTE | 2025-07-10 15:03 | PC.NURSE ---
Pt is dressed and ready for discharge home with Spouse. IV has been removed. Pt states she is starting to have some small bm's. Having a bit of nausea so po Zofran given. D/C instructions reviewed. Encouraged fluid intake to prevent constipation or dehydration, OTC miralax or other bowel meds and prunes or prune juice to assist with constipation. Pt denied further questions and was taken out via w/c by FOUR CORNER STAYER MACHINE OPERATOR to POV with Spouse and all belongings.
--- NOTE | 2025-07-10 15:12 | CM.DPC ---
DCP Discharge Home Per MD, pt with some ongoing abdominal distension from severe constipation and quite impacted but having some flatus and stool smears and pt and spouse wanting to discharge today to make their [facility] appointment after discharge. MD agreeable to write discharge orders for pt to go home today and close outpt f/u with her team at [facility]. Spouse bedside and agreeble to transport pt home today via ferry back to [facility] and will update their team at [facility] as well. RN provided discharge instructions and no concerns noted. DIXON Sampson
== END 2025-07-10 15:13 | disposition home or self-care (01) | DRG 683 ==
LOC: ED 19:34 → AC 19:53
PROVIDERS: Emergency Medicine; Family Medicine; Surgery; Admitting Provider Internal Medicine; Emergency Provider Emergency Medicine; PCP Family Medicine; Visit Provider Internal Medicine
DX: N17.9 Acute kidney failure, unspecified (principal); C79.51 Secondary malignant neoplasm of bone; N13.30 Unspecified hydronephrosis; E78.5 Hyperlipidemia, unspecified; F32.A Depression, unspecified; K52.9 Noninfective gastroenteritis and colitis, unspecified; D63.0 Anemia in neoplastic disease; C50.911 Malignant neoplasm of unspecified site of right female breast; I10 Essential (primary) hypertension; K59.03 Drug induced constipation; T40.2X5A Adverse effect of other opioids, initial encounter; Z87.891 Personal history of nicotine dependence
CPT/HCPCS: 36415; 74176; 74183; 80048; 80053; 81001; 83690; 85014; 85018; 85025; 85027; 96360; 96361; 99222; 99231; 99284; G0378; A9579; J1650; J2060; J2405; J2543; J2765